=== PATIENT | female | born 1990 | race Caucasian/White ===

== ENCOUNTER 2016-12-25 17:16 | Emergency (ER) | payer BC ==
[2016-12-25] MEDS ORDERED: HYDROmorphone 1 MG/ML Syringe IVPUSH ONE ×2 (18:08→20:33)
[2016-12-25] MEDS ORDERED: Sodium Chloride 0.9% 10 ML Syringe FLUSH PRN (18:08)
[2016-12-25] MEDS ORDERED: Promethazine 25 MG/ML SDV IV ONE (18:08)
[2016-12-25] MEDS ORDERED: Lactated Ringers 1,000 ML IV ONE (18:08)
--- NOTE | 2016-12-25 18:09 | EDM.PDOC ---
ED HPI GI/ABDOMINAL - General Chief Complaint: Abdominal Pain Stated Complaint: Abdominal pain Time Seen by Provider: 12/25/16 17:50 Source of Information: Reports: Patient, RN notes reviewed History Limitations: Reports: No limitations - History of Present Illness INITIAL COMMENTS - FREE TEXT/NARRATIVE: 26 year old female presents to the ED today due to abdominal pain for the past two days. This is a chronic problem for her. Her pain is located to her mid abdomen and umbilicus. She has associated nausea, no vomiting. She has diarrhea stools most days. She was taking Levsin and Zofran but has ran out. She utilized phenergan suppositories which has helped her nausea. She has not seen her caul puller as she is not happy with her care. She is currently working on a referral to a rehabilitation center manager. She's had numerous abdominal pain work ups which have been normal. Her last CT scan was two months ago. Her symptoms today are consistent with her usual abdominal pain symptoms. No fever, chills, dysuria, frequency, chest pain, shortness of breath. Patient has had multiple diagnostic studies including egd, colonscopies, CT and MRIs. No etiology has been found for her abdominal pain. She was pain free for nearly 6 months after her hystorectomy. However, her symptoms restarted 2-3 months ago. She has not seen her OBGYN since symptoms returned. - Related Data Allergies/ADRs: Allergies Allergy/AdvReac Type Severity Reaction Status Date / Time Penicillins Allergy Hives Verified 11/15/16 16:29 Home Meds: Home Meds Ondansetron [Zofran ODT] 8 mg PO Q6H PRN 12/08/15 [History] Acetaminophen [Tylenol Extra Strength] 500 mg PO DAILY 11/15/16 [History] Acetaminophen/oxyCODONE [Percocet 325-5 MG] 1 tab PO Q6H PRN #10 tablet [Rx] Hyoscyamine Sulfate [Levsin] 0.125 mg PO Q6H PRN #20 tablet 12/25/16 [Rx] Ondansetron [Zofran ODT] 4 mg PO Q8H PRN #20 tab.dis 12/25/16 [Rx] Past Medical History - Past Health History Medical/Surgical History: Denies Medical/Surgical History Other HEENT History: sinus surgery Gastrointestinal History: Reports: Other (see below) Other Gastrointestinal History: chronic abdominal pain 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 OB/BYN History: Ovarian Cysts, Laparoscopy Neurological History: Reports: Migraines - Infectious Disease History Infectious Disease History: Reports: Chicken pox - Past Surgical History HEENT Surgical History: Reports: Myringotomy w tube(s), Tonsillectomy Other HEENT Surgeries/Procedures: Septoplasty GI Surgical History: Reports: Cholecystectomy, Colonoscopy Female Surgical History: Reports: Hysterectomy, Tubal ligation Social & Family History - Tobacco Use Smoking Status *Q: Never Smoker Second Hand Smoke Exposure: No - Caffeine Use Caffeine Use: Reports: Coffee, Tea - Alcohol Use Days Per Week of Alcohol Use: 0 - Recreational Drug Use Recreational Drug Use: No - Living Situation & Occupation Living situation: Reports: with family ED ROS GENERAL - Review of Systems Review Of Systems: See Below Constitutional: Reports: no symptoms. Denies: fever, chills, diaphoresis Respiratory: Reports: No Symptoms. Denies: Shortness of Breath Cardiovascular: Reports: No symptoms. Denies: Chest pain GI/Abdominal: Reports: Abdominal pain, Diarrhea, Nausea. Denies: Constipation, Vomiting : Reports: no symptoms. Denies: dysuria, flank pain, frequency ED EXAM, GI/ABD - Physical Exam Exam: See Below Exam Limited By: No limitations General Appearance: alert, WD/WN, anxious, moderate distress Respiratory/Chest: no respiratory distress, lungs clear, normal breath sounds, no accessory muscle use, chest non-tender Cardiovascular: normal peripheral pulses, regular rate, rhythm, no murmur GI/Abdominal: normal bowel sounds, soft, no organomegaly, no distention, tenderness (diffuse ), guarding. No: rebound, rigidity Back Exam: normal inspection, full range of motion. No: CVA tenderness (L), CVA tenderness (R) Neurological: alert, oriented, normal cognition Course - Vital Signs Last Recorded V/S: Last Vital Signs Temp 98.0 F 12/25/16 17:38 Pulse 125 H 12/25/16 17:38 Resp 20 12/25/16 17:38 BP 116/88 12/25/16 17:38 Pulse Ox 100 12/25/16 17:38 - Orders/Labs/Meds Orders: Active Orders 24 hr Category Date Time Status Peripheral IV Care [RC] . DIRECTED Care 12/25/16 18:08 Active Sodium Chloride 0.9% [Normal Saline] 50 ml Med 12/25/16 19:00 Active IV ASDIRECTED Sodium Chloride 0.9% [Saline Flush] Med 12/25/16 18:08 Active 10 ml FLUSH ASDIRECTED PRN Peripheral IV Insertion Adult [OM.PC] Stat Oth 12/25/16 18:08 Ordered Medication Orders Sodium Chloride (Normal Saline) 50 mls @ 100 mls/hr IV ASDIRECTED LUIS ANTONIO Last Admin: 12/25/16 19:30 Dose: 100 mls/hr Sodium Chloride (Saline Flush) 10 ml FLUSH ASDIRECTED PRN PRN Reason: Keep Vein Open Last Admin: 12/25/16 19:34 Dose: 10 ml Meds: Medications Generic Name Dose Route Start Last Admin Trade Name Freq PRN Reason Stop Dose Admin Sodium Chloride 50 mls @ 100 mls/hr 12/25/16 19:00 12/25/16 19:30 Normal Saline IV 100 mls/hr ASDIRECTED LUIS ANTONIO Administration Sodium Chloride 10 ml 12/25/16 18:08 12/25/16 19:34 Saline Flush FLUSH 10 ml ASDIRECTED PRN Administration Keep Vein Open Discontinued Medications Generic Name Dose Route Start Last Admin Trade Name Freq PRN Reason Stop Dose Admin Fentanyl 50 mcg 12/25/16 21:16 12/25/16 21:24 Sublimaze IVPUSH 12/25/16 21:17 50 mcg ONETIME ONE Administration Hydromorphone HCl 1 mg 12/25/16 18:08 12/25/16 19:32 Dilaudid IVPUSH 12/25/16 18:09 1 mg ONETIME ONE Administration Hydromorphone HCl 1 mg 12/25/16 20:33 12/25/16 20:39 Dilaudid IVPUSH 12/25/16 20:34 1 mg ONETIME ONE Administration Lactated Ringer's 1,000 mls @ 999 mls/hr 12/25/16 18:08 12/25/16 19:28 Ringers, Lactated IV 12/25/16 19:08 999 mls/hr .BOLUS ONE Administration Ketorolac Tromethamine 30 mg 12/25/16 20:33 12/25/16 20:40 Toradol IVPUSH 12/25/16 20:34 30 mg ONETIME ONE Administration Promethazine HCl 25 mg 12/25/16 18:08 12/25/16 19:30 Phenergan IV 12/25/16 18:09 25 mg ONETIME ONE Administration - Re-Assessments/Exams Free Text/Narrative Re-Assessment/Exam: The patient's symptoms are consistent with her chronic abdominal pain. She's had multiple workups in the past with no identifiable etiology. Shared decision making process utilized. Labs were offered but the patient and I agree that labs are not necessary. Our goal today will be to treat her pain. After 2 mg of Dilaudid, 30mg of Toradol, and Phenergan, the patient's pain improved to 6/10. She is requesting additional pain medication. Will give Fentanyl 50 mcg IV x1. Patient feels she is ready to be discharged after Fentanyl. Departure - Departure Time of Disposition: 21:16 Disposition: Home, Self-Care 01 Condition: good Clinical Impression: Chronic abdominal pain Prescriptions: Hyoscyamine Sulfate [Levsin] 0.125 mg PO Q6H PRN #20 tablet PRN Reason: Abdominal Pain Ondansetron [Zofran ODT] 4 mg PO Q8H PRN #20 tab.dis PRN Reason: Nausea Instructions: Abdominal Pain, Adult, [id number] Referrals: PCP,None [Primary Care Provider] - Forms: ED Department Discharge Additional Instructions: Follow-up with your primary care provider as soon as possible Levsin 0.125mg every 6 hours as needed Zofran 4mg every 8 hours as needed for nausea Tylenol or Motrin as needed for pain Return to ER with worsening of symptoms No driving due to sedating medications given in the ED. - My Orders Last 24 Hours: My Active Orders 12/25/16 18:08 Peripheral IV Care [RC] . DIRECTED Sodium Chloride 0.9% [Saline Flush] 10 ml FLUSH ASDIRECTED PRN Peripheral IV Insertion Adult [OM.PC] Stat 12/25/16 19:00 Sodium Chloride 0.9% [Normal Saline] 50 ml IV ASDIRECTED - Assessment/Plan Last 24 Hours: My Active Orders 12/25/16 18:08 Peripheral IV Care [RC] . DIRECTED Sodium Chloride 0.9% [Saline Flush] 10 ml FLUSH ASDIRECTED PRN Peripheral IV Insertion Adult [OM.PC] Stat 12/25/16 19:00 Sodium Chloride 0.9% [Normal Saline] 50 ml IV ASDIRECTED
[2016-12-25] MEDS ORDERED: Sodium Chloride 0.9% 50 ML IV SCH (19:00)
[2016-12-25] MEDS ORDERED: Ketorolac 30 MG/ML SDV IVPUSH ONE (20:33)
[2016-12-25] MEDS ORDERED: fentaNYL 100 MCG/2 ML SDV IVPUSH ONE (21:16)
[2016-12-25 21:50] VITALS: BP 101/66
== END 2016-12-25 21:50 | disposition home or self-care (01) ==
LOC: JD.ED 17:16
DX: R10.84 Generalized abdominal pain (principal); G89.29 Other chronic pain; G43.909 Migraine, unspecified, not intractable, without status migrainosus; Z90.49 Acquired absence of other specified parts of digestive tract; Z90.710 Acquired absence of both cervix and uterus; Z98.890 Other specified postprocedural states; Z79.899 Other long term (current) drug therapy; Z88.0 Allergy status to penicillin
CPT/HCPCS: 96361; 96365; 96375; 96376; 99284; J1170; J1885; J2550; J3010; J7050; J7120

== ENCOUNTER 2017-03-25 12:40 | Emergency (ER) | payer SELFPAY ==
[2017-03-25] MEDS ORDERED: Sodium Chloride 0.9% 10 ML Syringe FLUSH PRN (13:34)
[2017-03-25] MEDS ORDERED: Promethazine 25 MG in Sodium Chloride 0.9% 50 ML IV ONE (13:34)
[2017-03-25] MEDS ORDERED: Lactated Ringers 1,000 ML IV ONE (13:34)
[2017-03-25] MEDS ORDERED: HYDROmorphone 1 MG/ML Syringe IVPUSH ONE ×2 (13:35→15:09)
--- NOTE | 2017-03-25 14:25 | EDM.PDOC ---
ED HPI GENERAL MEDICAL PROBLEM - General Chief Complaint: Abdominal Pain Stated Complaint: ABDOMINAL PAIN Time Seen by Provider: 03/25/17 13:55 Source of Information: Reports: Patient, Old Records (recent ER visit) History Limitations: Reports: No Limitations - History of Present Illness INITIAL COMMENTS - FREE TEXT/NARRATIVE: 26 year old female presents for evaluation and treatment of abdominal pain. Patient has chronic abdominal pain of unknown etiology. She has been seen by GI in [place] for her pain but no cause has been found. She is currently in between insurance providers, however, when her insurance is restarted she takes about going to [place] for a second opinion. She reports she has started this process. Patient has had numerous tests, images and ER visits but no etiology has been identified. She is not in any pain contract. Patient reports t his current episode of abdominal pain started about 2 days ago. The abdominal pain is similar to previous episodes. Reports associated nausea. No vomiting, diarrhea, fevers or constipation. Patient reports the pain is a sharp stabbing pain throughout her abdomen but worse in the lower quadrants. Reports the pain is a 10 out of 10. She has tried tyleol, zofran and tramadol for her symptoms but has not found any relief. Past surgical history includes a hysterectomy and tibial ligation. Abdominal Pain Score (Numeric/FACES): 10 - Related Data Allergies Allergy/AdvReac Type Severity Reaction Status Date / Time Penicillins Allergy Hives Verified 03/25/17 12:47 Home Meds: Home Meds Acetaminophen [Tylenol Extra Strength] 500 mg PO DAILY 11/15/16 [History] Hyoscyamine Sulfate [Levsin] 0.125 mg PO Q6H PRN #20 tablet 12/25/16 [Rx] Ondansetron [Zofran ODT] 4 mg PO Q8H PRN #20 tab.dis 12/25/16 [Rx] Ondansetron HCl [Zofran] 8 mg PO BID PRN 03/25/17 [History] Past Medical History - Past Health History Medical/Surgical History: Denies Medical/Surgical History Other HEENT History: sinus surgery Gastrointestinal History: Reports: Other (See Below) Other Gastrointestinal History: chronic abdominal pains, approx q 2 weeks, lasts for one week and then pain subsides. 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 Social & Family History - Tobacco Use Smoking Status *Q: Never Smoker Second Hand Smoke Exposure: No - Caffeine Use Caffeine Use: Reports: Coffee, Soda Caffeine Use Comment: 1-2 times per week, occ coffee - Alcohol Use Days Per Week of Alcohol Use: 0 - Recreational Drug Use Recreational Drug Use: No - Living Situation & Occupation Living situation: Reports: with Family ED ROS GENERAL - Review of Systems Review Of Systems: See Below Constitutional: Denies: Fever GI/Abdominal: Reports: Abdominal Pain, Nausea. Denies: Constipation, Diarrhea, Vomiting ED EXAM, GI/ABD - Physical Exam Exam: See Below Exam Limited By: No Limitations General Appearance: Alert, WD/WN, Mild Distress Respiratory/Chest: No Respiratory Distress, Lungs Clear, Normal Breath Sounds Cardiovascular: Normal Peripheral Pulses, Regular Rate, Rhythm, No Murmur GI/Abdominal: Normal Bowel Sounds, Soft, Tenderness (lower abdomen). No: Distention, Rebound, Rigidity Neurological: Alert, Oriented Psychiatric: Normal Affect, Normal Mood Skin Exam: Warm, Dry, Normal Color Course - Vital Signs Last Recorded V/S: Last Vital Signs Temp 36.4 C 03/25/17 12:45 Pulse 98 03/25/17 17:50 Resp 18 03/25/17 12:45 BP 94/60 03/25/17 17:50 Pulse Ox 99 03/25/17 17:50 - Orders/Labs/Meds Meds: Medications Discontinued Medications Generic Name Dose Route Start Last Admin Trade Name Freq PRN Reason Stop Dose Admin Hydromorphone HCl 1 mg 03/25/17 13:35 03/25/17 13:57 Dilaudid IVPUSH 03/25/17 13:36 1 mg ONETIME ONE Administration Hydromorphone HCl 1 mg 03/25/17 15:09 03/25/17 15:13 Dilaudid IVPUSH 03/25/17 15:10 1 mg ONETIME ONE Administration Hydromorphone HCl 0.5 mg 03/25/17 17:32 03/25/17 17:37 Dilaudid IVPUSH 03/25/17 17:33 0.5 mg ONETIME ONE Administration Lactated Ringer's 1,000 mls @ 999 mls/hr 03/25/17 13:34 03/25/17 14:00 Ringers, Lactated IV 03/25/17 14:34 999 mls/hr .BOLUS ONE Administration Promethazine HCl 25 mg/ Sodium 51 mls @ 100 mls/hr 03/25/17 13:34 03/25/17 13 :57 Chloride IV 03/25/17 14:04 100 mls/hr ONETIME ONE Administration Ketorolac Tromethamine 30 mg 03/25/17 15:09 03/25/17 15:15 Toradol IVPUSH 03/25/17 15:10 30 mg ONETIME ONE Administration Sodium Chloride 10 ml 03/25/17 13:34 03/25/17 14:00 Saline Flush FLUSH 10 ml ASDIRECTED PRN Administration Keep Vein Open - Re-Assessments/Exams Free Text/Narrative Re-Assessment/Exam: 03/25/17 17:52 I offered the patient any additional testing. She reports the abdominal pain today is similar to previous episodes and she is mostly here for pain control. I spoke with the patient's PCP, Shobha Smith. She switched PCPs recently and her new PCP has not yet seen her for her abdominal pain. Patient is currently in between insurance carries but the plan will be to have the patient follow-up with her PCP as soon as she is able to and they can discuss a second opinion from GI or a referral to [place] as needed. Patient has received 1.5mg IV dilaudid, 30mg IV toradol, 1 L LR and 25 mg phenergran IV. Pain is currently at a 5/10. She feels comfortably going home at this level Discharge instructions as documented. Departure - Departure Time of Disposition: 17:52 Disposition: Home, Self-Care 01 Condition: Fair Clinical Impression: Abdominal pain of unknown etiology - Discharge Information Instructions: Abdominal Pain, Adult, [id number] Referrals: Nayely Smith SHIPPING PACKER [Primary Care Provider] - Forms: ED Department Discharge Additional Instructions: Follow-up with your primary care provider within the next 1-2 weeks. I recommend he discuss a referral to [facility]. Continue with your current plan of care. Please return to the ER if your symptoms change or worsen.
[2017-03-25] MEDS ORDERED: Ketorolac 30 MG/ML SDV IVPUSH ONE (15:09)
[2017-03-25] MEDS ORDERED: HYDROmorphone 0.5 MG/0.5 ML Syringe IVPUSH ONE (17:32)
[2017-03-25 18:10] VITALS: BP 94/60
== END 2017-03-25 18:10 | disposition home or self-care (01) ==
LOC: SUPCPDRO 12:40 → JD.ED 12:40
DX: R10.30 Lower abdominal pain, unspecified (principal); G43.909 Migraine, unspecified, not intractable, without status migrainosus; Z98.890 Other specified postprocedural states; Z90.49 Acquired absence of other specified parts of digestive tract; Z90.710 Acquired absence of both cervix and uterus; Z96.22 Myringotomy tube(s) status; Z79.899 Other long term (current) drug therapy; Z88.0 Allergy status to penicillin
CPT/HCPCS: 96361; 96365; 96375; 96376; 99284; J1170; J1885; J2550; J7050; J7120

== ENCOUNTER 2017-04-15 20:05 | Emergency (ER) | payer SELFPAY ==
[2017-04-15 20:16] VITALS: BP 108/64
[2017-04-15] MEDS ORDERED: Ondansetron 4 MG/2 ML SDV IVPUSH ONE (20:36)
[2017-04-15] MEDS ORDERED: Sodium Chloride 0.9% 1,000 ML IV SCH (20:45)
--- NOTE | 2017-04-15 21:32 | EDM.PDOC ---
ED HPI GENERAL MEDICAL PROBLEM - General Chief Complaint: Abdominal Pain Stated Complaint: SEVERE ABDOMINAL PAIN Time Seen by Provider: 04/15/17 20:21 Source of Information: Reports: Patient, Family (Mother), Old Records, RN Notes Reviewed History Limitations: Reports: No Limitations - History of Present Illness INITIAL COMMENTS - FREE TEXT/NARRATIVE: The patient states that she has been experiencing lower abdominal pain, sharp in character, for the past 2 days, and that it has been getting progressively worse. She states that she fainted last night around 19:00 due to the pain. She feels somewhat better if she is in a position with a heating pad on her abdomen, worse with movement. She states that she has both urinated and had a bowel movement, without any change in her symptoms. She reports 3 episodes of emesis today, but no recent constipation, diarrhea, or urinary symptoms. She states that she has had similar symptoms repeatedly over the past 3 years. She has had extensive workups, including EGDs, colonoscopies, MRI's and approximately 10 CT scans, all of which have been negative as to cause. She states that she has undergone a cholecystectomy and hysterectomy, without relief of her symptoms. Review of prior medical records finds that this is her (approximately) 34th ED visit for this same complaint. She receives Dilaudid on the vast majority of her visits. She was seen by me in this ED on 09/04/2015 and explicitly asked for narcotics at that time. Review of the [place] PMPi finds 17 prescriptions for opioids by 12 different prescribers, filled at 4 different pharmacies since . The patient's PCP is Shobha Smith, who has prescribed the patient Zofran. Her Conservation Technician is Dr. Fagan from [facility]. 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: Musculoskeletal History: Reports: Fracture - Infectious Disease History Infectious Disease History: Reports: Chicken Pox - Past Surgical History HEENT Surgical History: Reports: Naso-Sinus Surgery, Oral Surgery ([place] teeth extraction), Tonsillectomy GI Surgical History: Reports: Cholecystectomy, Colonoscopy, EGD Female Surgical History: Reports: Hysterectomy, Tubal Ligation Social & Family History - Tobacco Use Smoking Status *Q: Never Smoker Second Hand Smoke Exposure: No - Caffeine Use Caffeine Use: Reports: None Caffeine Use Comment: 1-2 times per week, occ coffee - Alcohol Use Alcohol Use History: Yes Days Per Week of Alcohol Use: 0 Alcohol Use Frequency: Socially - Recreational Drug Use Recreational Drug Use: No - Living Situation & Occupation Living situation: Reports: (), with Family 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 Denies: Constipation, Diarrhea : Reports: No Symptoms. Denies: Dysuria, Frequency, Urgency Musculoskeletal: Reports: No Symptoms Skin: Reports: No Symptoms Neurological: Reports: No Symptoms Hematologic/Lymphatic: Reports: No Symptoms Immunologic: Reports: No Symptoms ED EXAM, GI/ABD - Physical Exam Exam: See Below Exam Limited By: No Limitations General Appearance: Alert, WD/WN, Mild Distress Eyes: Bilateral: Normal Appearance, EOMI Ears: Normal External Exam, Hearing Grossly Normal Nose: Normal Inspection, No Blood Throat/Mouth: Normal Inspection, Normal Lips, Normal Voice, No Airway Compromise Head: Atraumatic, Normocephalic Neck: Normal Inspection, Full Range of Motion Respiratory/Chest: No Respiratory Distress, Lungs Clear, Normal Breath Sounds, No Accessory Muscle Use Cardiovascular: Normal Peripheral Pulses, Regular Rate, Rhythm, No Gallop, No JVD, No Murmur, No Rub GI/Abdominal Exam: Normal Bowel Sounds, Soft, No Organomegaly, No Distention, No Abnormal Bruit, No Mass, Other (Generalized, nonfocal tenderness) (Female) Exam: Deferred Rectal (Female) Exam: Deferred Back Exam: Normal Inspection, Full Range of Motion, CVA Tenderness (R). No: CVA Tenderness (L) Extremities: Normal Inspection, Normal Range of Motion, No Pedal Edema, Normal Capillary Refill Neurological: Alert, Oriented, Normal Cognition, No Motor/Sensory Deficits Psychiatric: Depressed Mood, Flat Affect Skin Exam: Warm, Dry, Intact, Normal Color, No Rash Lymphatic: No Adenopathy Course - Vital Signs Last Recorded V/S: Last Vital Signs Temp 36.6 C 04/15/17 20:12 Pulse 94 04/15/17 20:12 Resp 20 04/15/17 20:12 BP 108/64 04/15/17 20:12 Pulse Ox 100 04/15/17 20:12 - Orders/Labs/Meds Orders: Active Orders 24 hr Category Date Time Status Abdomen 1V Upright [CR] Stat Exams 04/15/17 20:41 Taken Labs: Laboratory Tests 04/15/17 04/15/17 04/15/17 Range/Units 20:40 20:40 20:57 WBC 10.33 H (3.98-10.04) K/mm3 RBC 4.81 (3.98-5.22) M/mm3 Hgb 14.2 (11.2-15.7) gm/L Hct 41.2 (34.1-44.9) % MCV 85.7 (79.4-94.8) fl MCH 29.5 (25.6-32.2) pg MCHC 34.5 (32.2-35.5) g/dl RDW Std Deviation 40.9 (36.4-46.3) fL Plt Count 243 (182-369) K/mm3 MPV 10.2 (9.4-12.3) fl Neutrophils % (Manual) 50 (40-60) % Band Neutrophils % 0 (0-10) % Lymphocytes % (Manual) 40 (20-40) % Atypical Lymphs % 0 % Monocytes % (Manual) 7 (2-10) % Eosinophils % (Manual) 3 (0.7-5.8) % Basophils % (Manual) 0 L (0.1-1.2) Platelet Estimate Adequate RBC Morph Comment Normal Sodium 144 (136-145) mEq/L Potassium 3.8 (3.5-5.1) mEq/L Chloride 108 H (98-107) mEq/L Carbon Dioxide 28 (21-32) mEq/L Anion Gap 11.8 (5-15) BUN 14 (7-18) mg/dL Creatinine 1.0 (0.55-1.02) mg/dL Est Cr Clr Drug Dosing 64.89 mL/min Estimated GFR (MDRD) > 60 (>60) mL/min BUN/Creatinine Ratio 14.0 (14-18) Glucose 91 (74-106) mg/dL Calcium 9.0 (8.5-10.1) mg/dL Total Bilirubin 0.2 (0.2-1.0) mg/dL AST 15 (15-37) U/L ALT 21 (14-59) U/L Alkaline Phosphatase 73 (46-116) U/L Total Protein 7.0 (6.4-8.2) g/dl Albumin 4.0 (3.4-5.0) g/dl Globulin 3.0 gm/dL Albumin/Globulin Ratio 1.3 (1-2) Lipase 204 (73-393) U/L Urine Color Yellow (Yellow) Urine Appearance Clear (Clear) Urine pH 8.0 (5.0-8.0) Ur Specific Stout 1.020 (1.005-1.030) Urine Protein Negative (Negative) Urine Glucose (UA) Negative (Negative) Urine Ketones Negative (Negative) Urine Occult Blood Negative (Negative) Urine Nitrite Negative (Negative) Urine Bilirubin Negative (Negative) Urine Urobilinogen 0.2 (0.2-1.0) Ur Leukocyte Esterase Negative (Negative) Urine RBC 0-5 (0-5) /hpf Urine WBC 0-5 (0-5) /hpf Ur Epithelial Cells 0-5 (0-5) /hpf Urine Bacteria Few (FEW) /hpf Urine Mucus Few (FEW) /hpf Meds: Medications Discontinued Medications Generic Name Dose Route Start Last Admin Trade Name Freq PRN Reason Stop Dose Admin Sodium Chloride 1,000 mls @ 150 mls/hr 04/15/17 20:45 04/15/17 20:50 Normal Saline IV 150 mls/hr ASDIRECTED LUIS ANTONIO Administration Ondansetron HCl 4 mg 04/15/17 20:36 04/15/17 20:50 Zofran IVPUSH 04/15/17 20:37 4 mg ONETIME ONE Administration - Re-Assessments/Exams Free Text/Narrative Re-Assessment/Exam: 04/15/17 21:31 Upright abdominal radiograph appears to demonstrate stool in the right colon, otherwise a nonspecific bowel gas pattern. No free air. Formal read per the Radiologist pending. 04/15/17 22:28 Test results discussed with the patient and her mother, with nurse Dina present. Today's workup is unremarkable, and does not indicate that anything serious is occurring. I explained that this is the patient's 34th visit to this ED for the same complaint, which is concerning. ED's are not in a position to manage chronic issues. At present, she needs to formulate a plan for treating exacerbations with either Ms. Smith or her Conservation Technician, Dr. Fagan. As has been previously reported, I suspect that the patient's symptoms are related to depression, and she has been referred to psychiatry in the past, but I do not see that she is on any antidepressant medication. Departure - Departure Time of Disposition: 22:30 Disposition: Home, Self-Care 01 Condition: Good Clinical Impression: Chronic abdominal pain - Discharge Information Instructions: Abdominal Pain, Adult, [id number] Referrals: Nayely Smith NP [Ordering Only Provider] - Sb Fagan MD [Ordering Only Provider] - Forms: ED Department Discharge Additional Instructions: You were seen in the emergency room for recurrent abdominal pain, nausea and vomiting. Workup in the ER included blood work, a urinalysis, and an upright abdominal x- ray. Your entire workup was unremarkable, indicating no serious illness. The cause of your chronic abdominal pain is not known. Please follow-up with your PCP, Shobha Smith, and your Conservation Technician, Dr. Fagan. If any other problems, please do not hesitate to return to the ER. - My Orders Last 24 Hours: My Active Orders 04/15/17 20:41 Abdomen 1V Upright [CR] Stat - Assessment/Plan Last 24 Hours: My Active Orders 04/15/17 20:41 Abdomen 1V Upright [CR] Stat
--- NOTE | 2017-04-16 07:38 | CR ---
Abdomen: Upright view of the abdomen was obtained. Comparison: Previous upright abdominal x-ray of 04/25/16 is available. Bowel gas pattern is normal. No free air is seen. Bony structures appear within normal limits for the patient's age. Incidental phlebolith is noted within the pelvis. Impression: 1. Nothing acute is appreciated on upright abdominal x-ray. Diagnostic code #1
== END 2017-04-15 22:42 | disposition home or self-care (01) ==
LOC: JD.ED 20:05
DX: R10.30 Lower abdominal pain, unspecified (principal); G89.29 Other chronic pain; Z88.0 Allergy status to penicillin; Z79.899 Other long term (current) drug therapy; Z90.49 Acquired absence of other specified parts of digestive tract; Z90.710 Acquired absence of both cervix and uterus; Z98.51 Tubal ligation status
CPT/HCPCS: 36415; 74000; 80053; 81001; 83690; 85025; 96361; 96374; 99284; J2405; J7040; P9612

== ENCOUNTER 2017-06-12 23:03 | Emergency (ER) | payer SELFPAY ==
--- NOTE | 2017-06-12 23:11 | EDM.PDOC ---
ED HPI GENERAL MEDICAL PROBLEM - General Chief Complaint: Flank Pain Stated Complaint: STOMACH PAIN/BACK. BLACKED OUT Time Seen by Provider: 06/12/17 23:10 - History of Present Illness INITIAL COMMENTS - FREE TEXT/NARRATIVE: 26-year-old female returns emergency room with abdominal pain. Patient describes right flank discomfort and at times the pain has been so severe it drops her to her knees. She is awake during these episodes. They're not associated with palpitations chest discomfort or breathing difficulties. Patient has not had any fevers however, with the cooler weather has been chilled at times and she's not had associated nausea or vomiting. She does state she has urinary frequency but just can't empty and has to go again the patient is scheduled for a oophorectomy for polycystic ovarian disease. She's already had a hysterectomy cholecystectomy. With review the charts patient is been in multiple times for similar complaints she's had multiple extensive workups all of which been unrevealing she's had numerous CAT scans that have also been unrevealing. The patient and her mother are asking for pain medication at this time. I explained to him that we try not to do chronic pain management here in the emergency room this is a chronic pain problem. 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: Other OB/BYN History: Ovarian Cysts, Laparoscopy Musculoskeletal History: Reports: Fracture Neurological History: Reports: Migraines - Infectious Disease History Infectious Disease History: Reports: Chicken Pox - Past Surgical History HEENT Surgical History: Reports: Naso-Sinus Surgery, Oral Surgery ([place] teeth extraction), Tonsillectomy GI Surgical History: Reports: Cholecystectomy, Colonoscopy, EGD Female Surgical History: Reports: Hysterectomy, Tubal Ligation Social & Family History - Tobacco Use Smoking Status *Q: Never Smoker Second Hand Smoke Exposure: No - Caffeine Use Caffeine Use: Reports: None Caffeine Use Comment: 1-2 times per week, occ coffee - Alcohol Use Days Per Week of Alcohol Use: 0 - Recreational Drug Use Recreational Drug Use: No - Living Situation & Occupation Living situation: Reports: (), with Family 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 Denies: Constipation, Diarrhea, Vomiting : Reports: Dysuria, Frequency. Denies: Hematuria Neurological: Reports: No Symptoms ED EXAM, GENERAL - Physical Exam Exam: See Below Exam Limited By: No Limitations General Appearance: Alert, No Apparent Distress Head: Atraumatic, Normocephalic Neck: Normal Inspection, Supple, Non-Tender, Full Range of Motion Respiratory/Chest: No Respiratory Distress, Lungs Clear, Normal Breath Sounds Cardiovascular: Regular Rate, Rhythm, No Edema, No Murmur GI/Abdominal: Normal Bowel Sounds, Soft, Other (She has vague right lower quadrant discomfort). No: Distended, Guarding, Rigid, Rebound Back Exam: Normal Inspection, CVA Tenderness (R). No: CVA Tenderness (L), Muscle Spasm, Vertebral Tenderness Extremities: Normal Inspection, No Pedal Edema Course - Vital Signs Last Recorded V/S: Last Vital Signs Temp 35.9 C 06/12/17 23:09 Pulse 153 H 06/12/17 23:09 Resp 18 06/12/17 23:09 BP 117/71 06/12/17 23:09 Pulse Ox 100 06/12/17 23:09 - Orders/Labs/Meds Labs: Laboratory Tests 06/12/17 06/12/17 06/12/17 Range/Units 23:27 23:48 23:48 WBC 15.59 H (3.98-10.04) K/mm3 RBC 4.93 (3.98-5.22) M/mm3 Hgb 14.5 (11.2-15.7) gm/L Hct 42.4 (34.1-44.9) % MCV 86.0 (79.4-94.8) fl MCH 29.4 (25.6-32.2) pg MCHC 34.2 (32.2-35.5) g/dl RDW Std Deviation 41.0 (36.4-46.3) fL Plt Count 275 (182-369) K/mm3 MPV 9.9 (9.4-12.3) fl Neutrophils % (Manual) 62 H (40-60) % Band Neutrophils % 0 (0-10) % Lymphocytes % (Manual) 23 (20-40) % Atypical Lymphs % 7 % Monocytes % (Manual) 6 (2-10) % Eosinophils % (Manual) 2 (0.7-5.8) % Basophils % (Manual) 0 L (0.1-1.2) Platelet Estimate Adequate Plt Morphology Comment Normal RBC Morph Comment Normal Sodium 139 (136-145) mEq/L Potassium 3.9 (3.5-5.1) mEq/L Chloride 105 (98-107) mEq/L Carbon Dioxide 25 (21-32) mEq/L Anion Gap 12.9 (5-15) BUN 13 (7-18) mg/dL Creatinine 0.8 (0.55-1.02) mg/dL Est Cr Clr Drug Dosing TNP Estimated GFR (MDRD) > 60 (>60) mL/min BUN/Creatinine Ratio 16.3 (14-18) Glucose 109 H (74-106) mg/dL Calcium 9.5 (8.5-10.1) mg/dL Total Bilirubin 0.2 (0.2-1.0) mg/dL AST 15 (15-37) U/L ALT 19 (14-59) U/L Alkaline Phosphatase 80 (46-116) U/L Total Protein 7.1 (6.4-8.2) g/dl Albumin 4.0 (3.4-5.0) g/dl Globulin 3.1 gm/dL Albumin/Globulin Ratio 1.3 (1-2) Lipase 191 (73-393) U/L Urine Color Yellow (Yellow) Urine Appearance Clear (Clear) Urine pH 7.0 (5.0-8.0) Ur Specific [place] 1.025 (1.005-1.030) Urine Protein Negative (Negative) Urine Glucose (UA) Negative (Negative) Urine Ketones Negative (Negative) Urine Occult Blood 1+ H (Negative) Urine Nitrite Negative (Negative) Urine Bilirubin Negative (Negative) Urine Urobilinogen 0.2 (0.2-1.0) Ur Leukocyte Esterase Negative (Negative) Urine RBC 0-5 (0-5) /hpf Urine WBC 0-5 (0-5) /hpf Ur Epithelial Cells 0-5 (0-5) /hpf Urine Bacteria Few (FEW) /hpf Urine Mucus Moderate H (FEW) /hpf - Re-Assessments/Exams Free Text/Narrative Re-Assessment/Exam: 06/13/17 00:51 Labs reviewed white count slightly elevated no significant left shift no bandemia. Urinalysis is not suggestive of infectious process trace blood noted. Discussed the findings of this and further evaluation workups including CAT scan kidney stone is a possibility but I think not very likely given her exam and presentation she still has her appendix but if she has no appendicitis we are very early into this. The option for a CAT scan was given however I think is quite reasonable to wait 12-24 hours reevaluated pains better have return sooner if getting worse the patient concurs with this and agrees to this plan. 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 Departure - Departure Time of Disposition: 00:53 Disposition: Home, Self-Care 01 Clinical Impression: Abdominal pain of unknown etiology - Discharge Information Referrals: Ginette Barclay PA-C [Primary Care Provider] - Forms: ED Department Discharge Additional Instructions: Return to the emergency room with any questions problems worsening symptoms. Return in 12-24 hours if not better sooner if getting worse. Follow-up with gynecology as scheduled. Follow-up with your local provider this next week.
[2017-06-12 23:16] VITALS: BP 117/71
== END 2017-06-13 01:05 | disposition home or self-care (01) ==
LOC: JD.ED 23:03
DX: R10.31 Right lower quadrant pain (principal); Z88.0 Allergy status to penicillin; Z90.49 Acquired absence of other specified parts of digestive tract; Z90.710 Acquired absence of both cervix and uterus
CPT/HCPCS: 36415; 80053; 81001; 83690; 85025; 99283; 99284

== ENCOUNTER 2017-08-11 07:32 | Day surgery (SDC) | payer SELFPAY ==
[~2017-08-11 07:32] MED LIST: Lidocaine 1%/Sod Bicarbonate in NS 8.4% 1 ML Syringe IV PRN; Sodium Chloride 0.9% 10 ML Syringe FLUSH PRN
[2017-08-11] MEDS ORDERED: Bupivacaine 0.5% 30 ML SDV ONE (07:35)
[2017-08-11] MEDS: Lactated Ringers 1,000 ML IV SCH ×2 (07:50→11:12)
[2017-08-11] MEDS ORDERED: Scopolamine 1.5 MG Transdermal Patch TRDERM PRN (08:50)
--- NOTE | 2017-08-11 08:57 | PCM.PREANE ---
Preanesthetic Assessment - Anesthesia/Transfusion/Family Hx Anesthesia History: Prior Anesthesia Reaction (nausea) Family History of Anesthesia Reaction: No Transfusion History: No Prior Transfusion(s) - Review of Systems General: No Symptoms Pulmonary: No Symptoms Cardiovascular: No Symptoms Gastrointestinal: Abdominal Pain Neurological: No Symptoms Other: Reports: Anxiety - Physical Assessment NPO Status Date: 08/10/17 NPO Status Time: 21:00 Pulse: 108 O2 Sat by Pulse Oximetry: 98 Respiratory Rate: 16 Blood Pressure: 103/69 Temperature: 36.7 C Vital Signs: Last Vital Signs Temp 36.7 C 08/11/17 07:40 Pulse 108 H 08/11/17 07:40 Resp 16 08/11/17 07:40 BP 103/69 08/11/17 07:40 Pulse Ox 98 08/11/17 07:40 Height: 1.55 m Weight: 59.874 kg ASA Class: 2 Mental Status: Alert & Oriented x3 Airway Class: Mallampati = 1 Dentition: Reports: [place](s) Thyro-Mental Finger Breadths: 3 Mouth Opening Finger Breadths: 3 ROM/Head Extension: Full Lungs: Clear to Auscultation, Normal Respiratory Effort Cardiovascular: Regular Rate, Regular Rhythm, No Murmurs - Lab Values: Laboratory Last Values WBC 10.65 K/mm3 (3.98-10.04) H 08/03/17 13:38 RBC 5.28 M/mm3 (3.98-5.22) H 08/03/17 13:38 Hgb 15.4 gm/L (11.2-15.7) 08/03/17 13:38 Hct 45.2 % (34.1-44.9) H 08/03/17 13:38 MCV 85.6 fl (79.4-94.8) 08/03/17 13:38 MCH 29.2 pg (25.6-32.2) 08/03/17 13:38 MCHC 34.1 g/dl (32.2-35.5) 08/03/17 13:38 RDW Std Deviation 40.0 fL (36.4-46.3) 08/03/17 13:38 Plt Count 276 K/mm3 (182-369) 08/03/17 13:38 MPV 9.7 fl (9.4-12.3) 08/03/17 13:38 Neut % (Auto) 65.7 % (34.0-71.1) 08/03/17 13:38 Lymph % (Auto) 26.9 % (19.3-51.7) 08/03/17 13:38 [place] % (Auto) 6.1 % (4.7-12.5) 08/03/17 13:38 Eos % (Auto) 0.8 (0.7-5.8) 08/03/17 13:38 Baso % (Auto) 0.3 % (0.1-1.2) 08/03/17 13:38 Neut # (Auto) 6.99 K/mm3 (1.56-6.13) H 08/03/17 13:38 Lymph # (Auto) 2.87 K/mm3 (1.18-3.74) 08/03/17 13:38 [place] # (Auto) 0.65 K/mm3 (0.24-0.36) H 08/03/17 13:38 Eos # (Auto) 0.09 K/mm3 (0.04-0.36) 08/03/17 13:38 Baso # (Auto) 0.03 K/mm3 (0.01-0.08) 08/03/17 13:38 Creatinine 0.9 mg/dL (0.55-1.02) 08/03/17 13:38 Est Cr Clr Drug Dosing TNP 08/03/17 13:38 Estimated GFR (MDRD) > 60 mL/min (>60) 08/03/17 13:38 Urine Color Yellow (Yellow) 08/03/17 13:38 Urine Appearance Clear (Clear) 08/03/17 13:38 Urine pH 6.0 (5.0-8.0) 08/03/17 13:38 Ur Specific [place] 1.020 (1.005-1.030) 08/03/17 13:38 Urine Protein Negative (Negative) 08/03/17 13:38 Urine Glucose (UA) Negative (Negative) 08/03/17 13:38 Urine Ketones Negative (Negative) 08/03/17 13:38 Urine Occult Blood 2+ (Negative) H 08/03/17 13:38 Urine Nitrite Negative (Negative) 08/03/17 13:38 Urine Bilirubin Negative (Negative) 11/06/17 13:38 Urine Urobilinogen 0.2 (0.2-1.0) 08/03/17 13:38 Ur Leukocyte Esterase Negative (Negative) 08/03/17 13:38 Blood Type B POSITIVE 08/03/17 13:38 Gel Antibody Screen Negative 08/03/17 13:38 - Allergies Allergies/Adverse Reactions: Allergies Allergy/AdvReac Type Severity Reaction Status Date / Time Penicillins Allergy Hives Verified 08/10/17 14:07 - Anesthesia Plan Pre-Op Medication Ordered: None - Acknowledgements Anesthesia Type Planned: General Anesthesia Pt an Appropriate Candidate for the Planned Anesthesia: Yes Alternatives and Risks of Anesthesia Discussed w Pt/Guardian: Yes Pt/Guardian Understands and Agrees with Anesthesia Plan: Yes PreAnesthesia Questionnaire - Past Health History Medical/Surgical History: Denies Medical/Surgical History HEENT History: Reports: Impaired Vision Other HEENT History: sinus surgery Cardiovascular History: Reports: None Respiratory History: Reports: None Gastrointestinal History: Reports: Other (See Below) Other Gastrointestinal History: chronic abdominal pains, Genitourinary History: Reports: UTI, Recurrent [employer] History: Reports: Polycystic Ovaries, Other OB/BYN History: Ovarian Cysts, Laparoscopy Musculoskeletal History: Reports: None, Fracture Neurological History: Reports: Migraines Psychiatric History: Reports: None Endocrine/Metabolic History: Reports: Other (See Below) Other Endocrine/Metabolic History: hair growth, hirsutism Hematologic History: Reports: None Immunologic History: Reports: None Oncologic (Cancer) History: Reports: None Dermatologic History: Reports: Other (See Below) Other Dermatologic History: acne, foreign body in hand - Infectious Disease History Infectious Disease History: Reports: Chicken Pox - Past Surgical History Head Surgeries/Procedures: Reports: None HEENT Surgical History: Reports: Naso-Sinus Surgery, Oral Surgery, Tonsillectomy Other HEENT Surgeries/Procedures: Septoplasty Cardiovascular Surgical History: Reports: None GI Surgical History: Reports: Cholecystectomy, Colonoscopy, EGD Female Surgical History: Reports: Hysterectomy, Tubal Ligation Other Female Surgeries/Procedures: pt still has ovaries. Endocrine Surgical History: Reports: None Neurological Surgical History: Reports: None Musculoskeletal Surgical History: Reports: None Oncologic Surgical History: Reports: None - SUBSTANCE USE Smoking Status *Q: Never Smoker Second Hand Smoke Exposure: No Days Per Week of Alcohol Use: 0 Recreational Drug Use History: No - HOME MEDS Home Medications: Home Meds Spironolactone 100 mg PO BID 06/12/17 [History] Cyclobenzaprine [Flexeril] 5 mg PO TID PRN 08/10/17 [History] Hyoscyamine Sulfate [Levsin] 0.125 mg PO QID PRN 08/10/17 [History] Ondansetron [Zofran ODT] 4 mg PO Q6H PRN 08/10/17 [History] - CURRENT (IN HOUSE) MEDS Current Meds: Current Medications Lactated Ringer's (Ringers, Lactated) 1,000 mls @ 125 mls/hr IV ASDIRECTED LUIS ANTONIO Last Admin: 08/11/17 07:50 Dose: 125 mls/hr Lidocaine/Sodium Bicarbonate (Buffered Lidocaine 1% In Ns 8.4%) 0.25 ml IV ONETIME PRN PRN Reason: Prior to IV Start Scopolamine (Transderm-Scop) 1.5 mg TRDERM Q72H PRN PRN Reason: Nausea/Vomiting Sodium Chloride (Saline Flush) 10 ml FLUSH ASDIRECTED PRN PRN Reason: Keep Vein Open Discontinued Medications Bupivacaine HCl (Marcaine 0.5%) Confirm Administered Dose 30 ml .ROUTE .STK-MED ONE Stop: 08/11/17 07:36
[2017-08-11] MEDS ORDERED: Lidocaine 1% 4 ML ONE (09:18)
[2017-08-11] MEDS ORDERED: Midazolam 1 MG/ML 2 ML SDV ONE (09:18)
[2017-08-11] MEDS ORDERED: ceFAZolin 1 GM Vial ONE (09:18)
[2017-08-11] MEDS ORDERED: Propofol 200 MG/20 ML SDV ONE ×2 (09:18→10:02)
[2017-08-11] MEDS ORDERED: Ondansetron 4 MG/2 ML SDV ONE (09:18)
[2017-08-11] MEDS ORDERED: Rocuronium 50 MG/5 ML Vial ONE (09:18)
[2017-08-11] MEDS ORDERED: fentaNYL 250 MCG/5 ML SDV ONE (09:18)
[2017-08-11] MEDS ORDERED: Dexamethasone 4 MG/ML 5 ML MDV ONE (09:42)
[2017-08-11] MEDS ORDERED: Neostigmine Methylsulfate 1 MG/ML 5 ML Syringe ONE (10:00)
[2017-08-11] MEDS ORDERED: Acetaminophen/oxyCODONE 325-5 MG Tab PO PRN (10:06)
[2017-08-11] MEDS ORDERED: Ketorolac 30 MG/ML SDV ONE (10:07)
[2017-08-11] MEDS ORDERED: Ketorolac 30 MG/ML SDV IVPUSH SCH (10:15)
--- NOTE | 2017-08-11 10:16 | PCM.OPNOTE ---
- General Post-Op/Procedure Note Date of Surgery/Procedure: 08/11/17 Operative Procedure(s): Laparoscopy with bilateral oophorectomy Findings: Ovaries were minimally enlarged and had a very tense epithelium with findings consistent with polycystic ovarian syndrome. No significant scarring was noted. Appendix was noninflamed and normal in appearance. Patient status post cholecystectomy. The liver edge appears normal. Pre Op Diagnosis: 1. Polycystic ovarian syndrome. 2. Dyspareunia. 3. Hirsutism Post-Op Diagnosis: Same Anesthesia Technique: General ET Tube Other Anesthesia Type: Marcaine 0.5% locallyapproximate 3-5 mL at each incision site Primary Surgeon: Juan Carlos Mcdonald Secondary Surgeon: Zaire Hough Anesthesia Provider: Saida De La Fuente Beef Cattle Farmer: Agustina Moffett Reason Beef Cattle Farmer Was Necessary: Quality of care, patient safety, retraction Role of Beef Cattle Farmer: Quality of care, patient's safety, retraction Pathology: Bilateral ovaries Fluid Replacement, Intraop: 1,500 (Crystalloid) Output, Urine Amount: 40 Drain/Tube Comments:: Indwelling bladder catheter urine surgery only. It was removed at the end of the case. Complications: None Condition: Good Free Text/Narrative:: Surgery duration: 24 minutes Procedure: The patient was taken to the operating room and placed in supine position on the operating table. She received 2 g of Ancef preoperatively for infection prophylaxis and had sequential compression stockings in place for DVT prophylaxis. IV general anesthesia and endotracheal tube was placed. The patient was then prepped in usual fashion and draped in usual manner. A Allen catheter was placed and a sponge stick was placed in the vagina for manipulation as patient has had a hysterectomy. The umbilical and suprapubic incision sites were then developed. 3 5 mL of Marcaine 0.5% were used to infiltrate these 2 sites and eventually a third lateral site which was quarter inch in length. Verres needles placed, pneumoperitoneum was established using 3.0 L of CO2. Laps Sleeve and trocar were then placed. Under direct visualization superpubic and eventually the right lateral sleeves were placed in a similar fashion. Ovaries were identified, found to be as described above. There were laded away from the pelvic sidewall and using a and Enseal vessel closure does not device the infraumbilical pelvic ligament was crossclamped and cauterized. The ovaries were removed bilaterally in a similar fashion. The lower incision and suprapubic area was then enlarged to accommodate a 10 mm port. The port was placed, Endo Catch bag was used to remove the ovary. Same was done with second ovary. The lower abdominal incisions closed at the fascial level with 0 Vicryl suture in a short running stitch. The pneumoperitoneum was reversed and the skin incisions were closed. The suprapubic site was closed with a running suture of 3 -0 Monocryl. A single stitch of 3-0 Monocryl subcuticularly in each of the other 2 sites. therefore further approximated with Dermabond skin glue. At this point the surgery was discontinued and patient was awakened from general endotracheal anesthesia. It should be noted that she had the indwelling bladder catheter removed prior to reversal of anesthesia and had the stick sponge removed also. She left the operating room in good condition.
[2017-08-11] MEDS ORDERED: Haloperidol Lactate 5 MG/ML SDV IVPUSH ONE (10:23)
[2017-08-11] MEDS ORDERED: Midazolam 1 MG/ML 2 ML SDV IVPUSH PRN (10:23)
[2017-08-11] MEDS ORDERED: diphenhydrAMINE 50 MG/ML SDV IVPUSH PRN (10:23)
[2017-08-11] MEDS ORDERED: HYDROmorphone 0.5 MG/0.5 ML Syringe ONE (10:23)
[2017-08-11] MEDS ORDERED: HYDROmorphone 1 MG/ML Syringe ONE (10:25)
[2017-08-11] MEDS ORDERED: fentaNYL 100 MCG/2 ML SDV ONE (10:28)
[2017-08-11] MEDS: HYDROmorphone 0.5 MG/0.5 ML Syringe IVPUSH PRN ×2 (10:29→11:02)
[2017-08-11] MEDS: fentaNYL 100 MCG/2 ML SDV IVPUSH PRN ×2 (10:39→10:58)
[2017-08-11 14:24] VITALS: BP 93/56
--- NOTE | 2017-08-11 14:53 | PCM48HPAN ---
Post Anesthesia Note - EVALUATION WITHIN 48HRS OF ANESTHETIC Vital Signs in Normal Range: Yes Patient Participated in Evaluation: Yes Respiratory Function Stable: Yes Airway Patent: Yes Cardiovascular Function Stable: Yes Hydration Status Stable: Yes Pain Control Satisfactory: Yes Nausea and Vomiting Control Satisfactory: Yes Mental Status Recovered: Yes
== END 2017-08-11 12:43 | disposition home or self-care (01) ==
LOC: JD.SDS 07:32
PROVIDERS: ATTEND Obstetrics & Gynecology
DX: N83.202 Unspecified ovarian cyst, left side (principal); N83.201 Unspecified ovarian cyst, right side; N83.8 Other noninflammatory disorders of ovary, fallopian tube and broad ligament; Z88.0 Allergy status to penicillin; J30.2 Other seasonal allergic rhinitis; Z79.899 Other long term (current) drug therapy; Z90.49 Acquired absence of other specified parts of digestive tract; Z98.890 Other specified postprocedural states; Z98.51 Tubal ligation status; Z90.710 Acquired absence of both cervix and uterus
CPT/HCPCS: 36415; 58661; 81003; 82565; 85025; 86850; 86900; 86901; A9270; J0690; J1100; J1170; J1200; J1885; J2250; J2405; J2710; J3010; J7120; 00840; J2704

== ENCOUNTER 2017-08-12 20:15 | Emergency (ER) | payer SELFPAY ==
[2017-08-12] MEDS ORDERED: Sodium Chloride 0.9% 1,000 ML IV STA (20:57)
[2017-08-12] MEDS ORDERED: Sodium Chloride 0.9% 10 ML Syringe FLUSH PRN (20:57)
[2017-08-12] MEDS ORDERED: Ondansetron 4 MG/2 ML SDV IVPUSH ONE (20:57)
[2017-08-12] MEDS ORDERED: HYDROmorphone 1 MG/ML Syringe IVPUSH ONE ×2 (20:58→22:19)
--- NOTE | 2017-08-12 21:04 | EDM.PDOC ---
ED HPI GENERAL MEDICAL PROBLEM - General Chief Complaint: Abdominal Pain Stated Complaint: ISSUES ASSOCIATED WITH YESTERDAYS SURGERY Time Seen by Provider: 08/12/17 20:51 Source of Information: Reports: Patient History Limitations: Reports: No Limitations - History of Present Illness INITIAL COMMENTS - FREE TEXT/NARRATIVE: The patient presents with abdominal pain and distention. She had her ovaries removed yesterday. She had a hysterectomy in March. She has a history of chronic pelvic and abdominal pain. She has seen many specialists and now they have removed her uterus and ovaries. She denies fever but she has chills. She has nausea but no vomiting. She has no appetite. She has no dysuria. She has no cough. She has no edema or pain in her legs. She is more distended in her abdomen from this morning. Onset: Gradual Duration: Day(s): (yesterday) Location: Reports: Abdomen, Pelvis Quality: Reports: Sharp Severity: Severe Improves with: Reports: None Worsens with: Reports: None Associated Symptoms: Reports: Fever/Chills, Nausea/Vomiting. Denies: Cough, Shortness of Breath Lower Abdominal Pain Score (Numeric/FACES): 10 - Related Data Allergies Allergy/AdvReac Type Severity Reaction Status Date / Time Penicillins Allergy Hives Verified 08/12/17 20:36 Home Meds: Home Meds Spironolactone 100 mg PO BID 06/12/17 [History] Cyclobenzaprine [Flexeril] 5 mg PO TID PRN 08/10/17 [History] Hyoscyamine Sulfate [Levsin] 0.125 mg PO QID PRN 08/10/17 [History] Acetaminophen/oxyCODONE [Percocet 325-5 MG] 2 tab PO Q4H PRN #20 tablet [Rx] Ibuprofen 600 mg PO Q4H PRN #30 tablet 08/11/17 [Rx] Past Medical History - Past Health History Medical/Surgical History: Denies Medical/Surgical History HEENT History: Reports: Impaired Vision Other HEENT History: sinus surgery Cardiovascular History: Reports: None Respiratory History: Reports: None Gastrointestinal History: Reports: Other (See Below) Other Gastrointestinal History: chronic abdominal pains, Genitourinary History: Reports: UTI, Recurrent [employer] History: Reports: Polycystic Ovaries, Other OB/BYN History: Ovarian Cysts, Laparoscopy Musculoskeletal History: Reports: None, Fracture Neurological History: Reports: Migraines Psychiatric History: Reports: None Endocrine/Metabolic History: Reports: Other (See Below) Other Endocrine/Metabolic History: hair growth, hirsutism Hematologic History: Reports: None Immunologic History: Reports: None Oncologic (Cancer) History: Reports: None Dermatologic History: Reports: Other (See Below) Other Dermatologic History: acne, foreign body in hand - Infectious Disease History Infectious Disease History: Reports: Chicken Pox - Past Surgical History Head Surgeries/Procedures: Reports: None HEENT Surgical History: Reports: Naso-Sinus Surgery, Oral Surgery, Tonsillectomy Other HEENT Surgeries/Procedures: Septoplasty Cardiovascular Surgical History: Reports: None GI Surgical History: Reports: Cholecystectomy, Colonoscopy, EGD Female Surgical History: Reports: Hysterectomy, Tubal Ligation Other Female Surgeries/Procedures: pt still has ovaries. Endocrine Surgical History: Reports: None Neurological Surgical History: Reports: None Musculoskeletal Surgical History: Reports: None Oncologic Surgical History: Reports: None Social & Family History - Family History Family Medical History: Noncontributory - Tobacco Use Smoking Status *Q: Never Smoker Second Hand Smoke Exposure: No - Caffeine Use Caffeine Use: Reports: None Caffeine Use Comment: 1-2 times per week, occ coffee - Alcohol Use Days Per Week of Alcohol Use: 0 - Recreational Drug Use Recreational Drug Use: No - Living Situation & Occupation Living situation: Reports: (), with Family 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 Denies: Fever HEENT: Reports: No Symptoms Respiratory: Reports: No Symptoms Cardiovascular: Reports: No Symptoms Endocrine: Reports: No Symptoms GI/Abdominal: Reports: Abdominal Pain, Nausea. Denies: Diarrhea, Vomiting : Reports: No Symptoms Musculoskeletal: Reports: No Symptoms Skin: Reports: No Symptoms Neurological: Reports: No Symptoms ED EXAM, GI/ABD - Physical Exam Exam: See Below Exam Limited By: No Limitations General Appearance: Alert, No Apparent Distress Ears: Normal External Exam Nose: Normal Inspection Head: Atraumatic, Normocephalic Neck: Normal Inspection Respiratory/Chest: No Respiratory Distress, Lungs Clear, Normal Breath Sounds Cardiovascular: Regular Rate, Rhythm, No Edema, No Murmur GI/Abdominal Exam: Soft, Other (Mild to moderate abdominal distention. Generalized pain upon palpation. Three incisions with no redness, edema or drainage.) Course - Vital Signs Last Recorded V/S: Last Vital Signs Temp 97.4 F 08/12/17 20:34 Pulse 110 H 08/12/17 20:34 Resp 16 08/12/17 20:34 BP 124/92 H 08/12/17 20:34 Pulse Ox 99 08/12/17 20:34 - Orders/Labs/Meds Orders: Active Orders 24 hr Category Date Time Status Peripheral IV Care [RC] . DIRECTED Care 08/12/17 20:57 Active Abdomen Pelvis w Cont [CT] Stat Exams 08/12/17 20:57 Taken HYDROmorphone [Dilaudid] Med 08/13/17 00:00 Once 1 mg IVPUSH ONETIME ONE Ondansetron [Zofran] Med 08/13/17 00:00 Once 4 mg IVPUSH ONETIME ONE Sodium Chloride 0.9% [Saline Flush] Med 08/12/17 20:57 Active 10 ml FLUSH ASDIRECTED PRN ED Antiemetic Medication Reflex [OM.PC] Stat Oth 08/12/17 20:57 Ordered Peripheral IV Insertion Adult [OM.PC] Stat Oth 08/12/17 20:57 Ordered Medication Orders Sodium Chloride (Saline Flush) 10 ml FLUSH ASDIRECTED PRN PRN Reason: Keep Vein Open Last Admin: 08/12/17 21:25 Dose: 10 ml Labs: Laboratory Tests 08/12/17 08/12/17 08/12/17 Range/Units 21:34 21:34 22:45 WBC 12.12 H (3.98-10.04) K/mm3 RBC 3.81 L (3.98-5.22) M/mm3 Hgb 11.4 (11.2-15.7) gm/L Hct 33.7 L (34.1-44.9) % MCV 88.5 (79.4-94.8) fl MCH 29.9 (25.6-32.2) pg MCHC 33.8 (32.2-35.5) g/dl RDW Std Deviation 40.5 (36.4-46.3) fL Plt Count 256 (182-369) K/mm3 MPV 9.6 (9.4-12.3) fl Neut % (Auto) 54.0 (34.0-71.1) % Lymph % (Auto) 38.4 (19.3-51.7) % [place] % (Auto) 5.9 (4.7-12.5) % Eos % (Auto) 1.3 (0.7-5.8) Baso % (Auto) 0.2 (0.1-1.2) % Neut # (Auto) 6.54 H (1.56-6.13) K/mm3 Lymph # (Auto) 4.65 H (1.18-3.74) K/mm3 [place] # (Auto) 0.72 H (0.24-0.36) K/mm3 Eos # (Auto) 0.16 (0.04-0.36) K/mm3 Baso # (Auto) 0.03 (0.01-0.08) K/mm3 Sodium 143 (136-145) mEq/L Potassium 3.6 (3.5-5.1) mEq/L Chloride 109 H (98-107) mEq/L Carbon Dioxide 26 (21-32) mEq/L Anion Gap 11.6 (5-15) BUN 14 (7-18) mg/dL Creatinine 0.7 (0.55-1.02) mg/dL Est Cr Clr Drug Dosing 92.71 mL/min Estimated GFR (MDRD) > 60 (>60) mL/min BUN/Creatinine Ratio 20.0 H (14-18) Glucose 102 (74-106) mg/dL Calcium 8.2 L (8.5-10.1) mg/dL Total Bilirubin 0.2 (0.2-1.0) mg/dL AST 15 (15-37) U/L ALT 19 (14-59) U/L Alkaline Phosphatase 67 (46-116) U/L Total Protein 5.7 L (6.4-8.2) g/dl Albumin 3.1 L (3.4-5.0) g/dl Globulin 2.6 gm/dL Albumin/Globulin Ratio 1.2 (1-2) Lipase 162 (73-393) U/L Urine Color Yellow (Yellow) Urine Appearance Clear (Clear) Urine pH 6.0 (5.0-8.0) Ur Specific [place] 1.020 (1.005-1.030) Urine Protein Negative (Negative) Urine Glucose (UA) Negative (Negative) Urine Ketones Negative (Negative) Urine Occult Blood Negative (Negative) Urine Nitrite Negative (Negative) Urine Bilirubin Negative (Negative) Urine Urobilinogen 0.2 (0.2-1.0) Ur Leukocyte Esterase Negative (Negative) Urine RBC 0-5 (0-5) /hpf Urine WBC 0-5 (0-5) /hpf Ur Epithelial Cells 0-5 (0-5) /hpf Urine Bacteria Rare (FEW) /hpf Urine Mucus Few (FEW) /hpf Meds: Medications Generic Name Dose Route Start Last Admin Trade Name Freq PRN Reason Stop Dose Admin Sodium Chloride 10 ml 08/12/17 20:57 08/12/17 21:25 Saline Flush FLUSH 10 ml ASDIRECTED PRN Administration Keep Vein Open Discontinued Medications Generic Name Dose Route Start Last Admin Trade Name Freq PRN Reason Stop Dose Admin Diatrizoate Meglum/Diatrizoate Sod 90 ml 08/12/17 23:03 08/12/17 23:04 Gastrografin 37% PO 08/12/17 23:04 90 ml ONETIME ONE Administration Hydromorphone HCl 1 mg 08/12/17 20:58 08/12/17 21:22 Dilaudid IVPUSH 08/12/17 20:59 1 mg ONETIME ONE Administration Hydromorphone HCl 1 mg 08/12/17 22:19 08/12/17 22:36 Dilaudid IVPUSH 08/12/17 22:20 1 mg ONETIME ONE Administration Sodium Chloride 1,000 mls @ 1,000 mls/hr 08/12/17 20:57 08/12/17 21:20 Normal Saline IV 08/12/17 21:56 1,000 mls/hr .BOLUS STA Administration Iopamidol 100 ml 08/12/17 23:05 08/12/17 23:06 Isovue-300 (61%) IVPUSH 08/12/17 23:06 100 ml ONETIME ONE Administration Ondansetron HCl 4 mg 08/12/17 20:57 08/12/17 21:21 Zofran IVPUSH 08/12/17 20:58 4 mg ONETIME ONE Administration - Re-Assessments/Exams Free Text/Narrative Re-Assessment/Exam: 08/12/17 21:04 I ordered an IV NS 1L bolus, zofran 4mg IV, dilaudid 1mg IV, labs, UA, and a CT of her abdomen and pelvis. 08/13/17 00:02 Her WBC was elevated at 12.12. Her Hgb was normal. Her CMP was negative. Her UA shows no UTI. Her CT shows postoperative pneumoperitoneum of uncertain significance. This is from the surgery. I will give her more zofran and dilaudid. I will discharge her home. Departure - Departure Time of Disposition: 00:05 Disposition: Home, Self-Care 01 Condition: Good Clinical Impression: Postoperative abdominal pain - Discharge Information Referrals: Juan Carlos Mcdonald MD [Primary Care Provider] - 1 Week Forms: ED Department Discharge Additional Instructions: Take your medication as prescribed. Follow up with Dr Mcdonald as scheduled. Please return if you have worsening nausea, vomiting and abdominal pain. - My Orders Last 24 Hours: My Active Orders 08/12/17 20:57 Peripheral IV Care [RC] . DIRECTED Abdomen Pelvis w Cont [CT] Stat Sodium Chloride 0.9% [Saline Flush] 10 ml FLUSH ASDIRECTED PRN ED Antiemetic Medication Reflex [OM.PC] Stat Peripheral IV Insertion Adult [OM.PC] Stat 08/13/17 00:00 HYDROmorphone [Dilaudid] 1 mg IVPUSH ONETIME ONE Ondansetron [Zofran] 4 mg IVPUSH ONETIME ONE - Assessment/Plan Last 24 Hours: My Active Orders 08/12/17 20:57 Peripheral IV Care [RC] . DIRECTED Abdomen Pelvis w Cont [CT] Stat Sodium Chloride 0.9% [Saline Flush] 10 ml FLUSH ASDIRECTED PRN ED Antiemetic Medication Reflex [OM.PC] Stat Peripheral IV Insertion Adult [OM.PC] Stat 08/13/17 00:00 HYDROmorphone [Dilaudid] 1 mg IVPUSH ONETIME ONE Ondansetron [Zofran] 4 mg IVPUSH ONETIME ONE
[2017-08-12] MEDS ORDERED: Iopamidol 755 Mg/ML 100 ML Bottle IVPUSH ONE (23:03)
[2017-08-12] MEDS ORDERED: Diatrizoate Meglumine/Diatrizoate Sodium 37% 120 ML Bottle PO ONE (23:03)
[2017-08-12] MEDS ORDERED: Iopamidol 612 MG/ML 100 ML Bottle IVPUSH ONE (23:05)
[2017-08-13] MEDS ORDERED: Ondansetron 4 MG/2 ML SDV IVPUSH ONE
[2017-08-13] MEDS ORDERED: HYDROmorphone 1 MG/ML Syringe IVPUSH ONE
[2017-08-13 00:40] VITALS: BP 104/72
--- NOTE | 2017-08-13 06:57 | CT ---
CT abdomen and pelvis Technique: Multiple axial sections were obtained from above the dome of the diaphragm inferiorly to the pubic symphysis. Intravenous and oral contrast was utilized. Delayed images were also obtained through the bladder. Comparison: Previous abdominal x-ray performed on 04/15/[address] abdomen and pelvis exam performed on 10/14/16. Findings: Small portion of the visualized lung bases show nothing acute. Free air is identified within the abdomen. Liver shows no focal parenchymal abnormality. Spleen appears within normal limits. Adrenal glands show no nodule. Pancreas is unremarkable. Kidneys show symmetric contrast enhancement without hydronephrosis or mass. Aorta shows no aneurysmal dilatation. No retroperitoneal adenopathy or mesenteric abnormalities are seen. Small amount of air is seen within the lower anterior abdominal wall. There is mild increased density within the subcutaneous fat within the right lower abdominal wall presumably due to previous surgery. Mild increased stool is noted within the colon. Delayed images show contrast within the distal ureters and within the bladder. Small amount of air is identified within the bladder. This air is presumably due to recent instrumentation. Appendix is seen which appears normal. No bowel dilatation is seen. No free fluid is identified. Impression: 1. Free air within the abdomen. 2. Small amount of air within the bladder presumably from recent instrumentation. 3. Air within the lower anterior abdominal wall as well as increased density within the right lower subcutaneous fat is likely from recent surgery. 4. Mild increased stool within the colon. 5. No acute abnormality is appreciated. Diagnostic code #2 Agree with preliminary report issued by [facility] ([facility] preliminary report dictated on 08/13/17, 12:33 AM Central Time)
== END 2017-08-13 00:35 | disposition home or self-care (01) ==
LOC: JD.ED 20:15
DX: G89.18 Other acute postprocedural pain (principal); R10.2 Pelvic and perineal pain; Z90.722 Acquired absence of ovaries, bilateral; Z90.710 Acquired absence of both cervix and uterus; Z88.0 Allergy status to penicillin
CPT/HCPCS: 36415; 74177; 80053; 81001; 83690; 85025; 96361; 96374; 96375; 96376; 99284; J1170; J2405; J7040; J7050; Q9963; Q9967

== ENCOUNTER 2018-01-07 14:39 | Emergency (ER) | payer BC ==
[2018-01-07 14:57] VITALS: BP 100/67
[2018-01-07] MEDS ORDERED: Ondansetron 4 MG/2 ML SDV IVPUSH ONE (15:12)
[2018-01-07] MEDS ORDERED: Sodium Chloride 0.9% 1,000 ML IV SCH (15:15)
[2018-01-07] MEDS ORDERED: Dicyclomine 20 MG/2 ML SDV IM ONE (15:15)
--- NOTE | 2018-01-07 15:21 | EDM.PDOC ---
ED HPI GENERAL MEDICAL PROBLEM - General Chief Complaint: Gastrointestinal Problem Stated Complaint: VOMITING Time Seen by Provider: 01/07/18 14:51 Source of Information: Reports: Patient, Family (Mother), Old Records, RN Notes Reviewed History Limitations: Reports: No Limitations - History of Present Illness INITIAL COMMENTS - FREE TEXT/NARRATIVE: The patient states that she developed severe upper central abdominal pain around 02:30 this morning, followed by nausea, vomiting, and slight watery diarrhea around 04:30. The patient acknowledges that she has a long history of chronic abdominal pain of undetermined etiology, but states that the nausea, vomiting, and diarrhea are new. She states that she took some Tylenol, but vomited it up shortly thereafter. She states that she has not taken any other medications to try to treat her symptoms today. No recent fever. No recent urinary symptoms. Review of prior medical records indicates that this is the patient's ( approximately) 37th visit for similar complaints, including by me on 04/15/2017 and 09/04/2015. The patient receives Dilaudid on the vast majority of her visits , and has explicitly asked for narcotics in the past. Review of the [place] PMPi finds that the patient has 19 prescriptions for controlled substances by 15 different prescribers, filled at 5 different pharmacies since 07/20/2015. When seen by me on 04/15/2017, a standard abdominal pain workup was unremarkable. It was explained to the patient at that time that the emergency departments are not in a position to manage chronic pain. I recommended that she formulate a plan for treating exacerbations of her pain with her Pressurizer. I also suspected that her symptoms may be related to depression, and recommended that she follow-up with a Psychiatrist, however, it does not appear that the patient has done that, as she is not currently on any medications. The patient states that she does not currently have a PCP. Her Pressurizer is Dr. Fagan. 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 History: Reports: Polycystic Ovaries, Musculoskeletal History: Reports: Fracture Endocrine/Metabolic History: Reports: Other (See Below) (Hirsutism) - Infectious Disease History Infectious Disease History: Reports: Chicken Pox - Past Surgical History HEENT Surgical History: Reports: Naso-Sinus Surgery (Septoplasty), Oral Surgery ([employer] teeth extraction), Tonsillectomy GI Surgical History: Reports: Cholecystectomy, Colonoscopy, EGD Female Surgical History: Reports: Hysterectomy, Oophorectomy (08/11/2017), Tubal Ligation Social & Family History - Family History Family Medical History: Noncontributory - Tobacco Use Smoking Status *Q: Never Smoker Second Hand Smoke Exposure: No - Caffeine Use Caffeine Use: Reports: Coffee, Energy Drinks, Soda, Tea Caffeine Use Comment: 1-2 times per week, occ coffee - Alcohol Use Alcohol Use History: Yes Days Per Week of Alcohol Use: 0 Alcohol Use Frequency: Socially - Recreational Drug Use Recreational Drug Use: No - Living Situation & Occupation Living situation: Reports: (), with Family 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 ED EXAM, GI/ABD - Physical Exam Exam: See Below Exam Limited By: No Limitations General Appearance: Alert, WD/WN, Mild Distress (Appears uncomfortable, but in no distress) Eyes: Bilateral: Normal Appearance, EOMI Ears: Normal External Exam, Hearing Grossly Normal Nose: Normal Inspection, No Blood Throat/Mouth: Normal Inspection, Normal Lips, Normal Voice, No Airway Compromise Head: Atraumatic, Normocephalic Neck: Normal Inspection, Full Range of Motion Respiratory/Chest: No Respiratory Distress, Lungs Clear, Normal Breath Sounds, No Accessory Muscle Use Cardiovascular: Normal Peripheral Pulses, Regular Rate, Rhythm, No Edema, No Gallop, No JVD, No Murmur, No Rub GI/Abdominal Exam: Normal Bowel Sounds, Soft, No Organomegaly, No Distention, No Abnormal Bruit, No Mass, Tender (Mild, generalized, non-focal) (Female) Exam: Deferred Rectal (Female) Exam: Deferred Back Exam: Normal Inspection, Full Range of Motion, NT Extremities: Normal Inspection, Normal Range of Motion, No Pedal Edema, Normal Capillary Refill Neurological: Alert, Oriented, Normal Cognition, No Motor/Sensory Deficits Psychiatric: Normal Affect Skin Exam: Warm, Dry, Intact, Normal Color, No Rash Course - Vital Signs Last Recorded V/S: Last Vital Signs Temp 35.8 C 01/07/18 14:55 Pulse 113 H 01/07/18 14:55 Resp 20 01/07/18 14:55 BP 100/67 01/07/18 14:55 Pulse Ox 100 01/07/18 14:55 - Orders/Labs/Meds Orders: Active Orders 24 hr Category Date Time Status CULTURE URINE [RM] Stat Lab 01/07/18 17:07 Ordered HCG QUALITATIVE,URINE [URCHEM] Stat Lab 01/07/18 16:16 Ordered UA W/MICROSCOPIC [URIN] Stat Lab 01/07/18 16:16 Ordered Sodium Chloride 0.9% [Normal Saline] 1,000 ml Med 01/07/18 15:15 Active IV ASDIRECTED Medication Orders Sodium Chloride (Normal Saline) 1,000 mls @ 150 mls/hr IV ASDIRECTED LUIS ANTONIO Last Admin: 01/07/18 15:24 Dose: 150 mls/hr Labs: Laboratory Tests 01/07/18 01/07/18 01/07/18 Range/Units 15:17 15:17 16:16 WBC 6.08 (3.98-10.04) K/mm3 RBC 5.76 H (3.98-5.22) M/mm3 Hgb 16.7 H (11.2-15.7) gm/L Hct 48.7 H (34.1-44.9) % MCV 84.5 (79.4-94.8) fl MCH 29.0 (25.6-32.2) pg MCHC 34.3 (32.2-35.5) g/dl RDW Std Deviation 39.3 (36.4-46.3) fL Plt Count 240 (182-369) K/mm3 MPV 9.7 (9.4-12.3) fl Neutrophils % (Manual) 76 H (40-60) % Band Neutrophils % 0 (0-10) % Lymphocytes % (Manual) 17 L (20-40) % Atypical Lymphs % 0 % Monocytes % (Manual) 7 (2-10) % Eosinophils % (Manual) 0 L (0.7-5.8) % Basophils % (Manual) 0 L (0.1-1.2) Platelet Estimate Adequate RBC Morph Comment Normal Sodium 143 (136-145) mEq/L Potassium 3.3 L (3.5-5.1) mEq/L Chloride 103 (98-107) mEq/L Carbon Dioxide 29 (21-32) mEq/L Anion Gap 14.3 (5-15) BUN 10 (7-18) mg/dL Creatinine 0.7 (0.55-1.02) mg/dL Est Cr Clr Drug Dosing 91.90 mL/min Estimated GFR (MDRD) > 60 (>60) mL/min BUN/Creatinine Ratio 14.3 (14-18) Glucose 109 H (74-106) mg/dL Calcium 10.0 (8.5-10.1) mg/dL Total Bilirubin 0.5 (0.2-1.0) mg/dL AST 37 (15-37) U/L ALT 61 H (14-59) U/L Alkaline Phosphatase 107 (46-116) U/L Total Protein 8.6 H (6.4-8.2) g/dl Albumin 4.7 (3.4-5.0) g/dl Globulin 3.9 gm/dL Albumin/Globulin Ratio 1.2 (1-2) Lipase 192 (73-393) U/L Urine Color Dark yellow (Yellow) Urine Appearance Slt cloudy H (Clear) Urine pH 6.0 (5.0-8.0) Ur Specific Lindsay > or = 1.030 (1.005-1.030) Urine Protein 1+ H (Negative) Urine Glucose (UA) Negative (Negative) Urine Ketones Trace H (Negative) Urine Occult Blood Trace-intact H (Negative) Urine Nitrite Negative (Negative) Urine Bilirubin 1+ H (Negative) Urine Urobilinogen 0.2 (0.2-1.0) Ur Leukocyte Esterase Negative (Negative) Urine RBC 0-5 (0-5) /hpf Urine WBC 5-10 H (0-5) /hpf Ur Epithelial Cells 5-10 H (0-5) /hpf Amorphous Sediment Few H (NOT SEEN) /hpf Urine Bacteria Few (FEW) /hpf Urine Mucus Many H (FEW) /hpf Urine HCG, Qual (NEGATIVE) 04/12/18 Range/Units 16:16 WBC (3.98-10.04) K/mm3 RBC (3.98-5.22) M/mm3 Hgb (11.2-15.7) gm/L Hct (34.1-44.9) % MCV (79.4-94.8) fl MCH (25.6-32.2) pg MCHC (32.2-35.5) g/dl RDW Std Deviation (36.4-46.3) fL Plt Count (182-369) K/mm3 MPV (9.4-12.3) fl Neutrophils % (Manual) (40-60) % Band Neutrophils % (0-10) % Lymphocytes % (Manual) (20-40) % Atypical Lymphs % % Monocytes % (Manual) (2-10) % Eosinophils % (Manual) (0.7-5.8) % Basophils % (Manual) (0.1-1.2) Platelet Estimate RBC Morph Comment Sodium (136-145) mEq/L Potassium (3.5-5.1) mEq/L Chloride (98-107) mEq/L Carbon Dioxide (21-32) mEq/L Anion Gap (5-15) BUN (7-18) mg/dL Creatinine (0.55-1.02) mg/dL Est Cr Clr Drug Dosing mL/min Estimated GFR (MDRD) (>60) mL/min BUN/Creatinine Ratio (14-18) Glucose (74-106) mg/dL Calcium (8.5-10.1) mg/dL Total Bilirubin (0.2-1.0) mg/dL AST (15-37) U/L ALT (14-59) U/L Alkaline Phosphatase (46-116) U/L Total Protein (6.4-8.2) g/dl Albumin (3.4-5.0) g/dl Globulin gm/dL Albumin/Globulin Ratio (1-2) Lipase (73-393) U/L Urine Color (Yellow) Urine Appearance (Clear) Urine pH (5.0-8.0) Ur Specific Lindsay (1.005-1.030) Urine Protein (Negative) Urine Glucose (UA) (Negative) Urine Ketones (Negative) Urine Occult Blood (Negative) Urine Nitrite (Negative) Urine Bilirubin (Negative) Urine Urobilinogen (0.2-1.0) Ur Leukocyte Esterase (Negative) Urine RBC (0-5) /hpf Urine WBC (0-5) /hpf Ur Epithelial Cells (0-5) /hpf Amorphous Sediment (NOT SEEN) /hpf Urine Bacteria (FEW) /hpf Urine Mucus (FEW) /hpf Urine HCG, Qual Negative (NEGATIVE) Meds: Medications Generic Name Dose Route Start Last Admin Trade Name Freq PRN Reason Stop Dose Admin Sodium Chloride 1,000 mls @ 150 mls/hr 01/07/18 15:15 01/07/18 15:24 Normal Saline IV 150 mls/hr ASDIRECTED LUIS ANTONIO Administration Discontinued Medications Generic Name Dose Route Start Last Admin Trade Name Freq PRN Reason Stop Dose Admin Dicyclomine HCl 20 mg 01/07/18 15:15 01/07/18 15:23 Bentyl IM 01/07/18 15:16 20 mg ONETIME ONE Administration Ondansetron HCl 4 mg 01/07/18 15:12 01/07/18 15:23 Zofran IVPUSH 01/07/18 15:13 4 mg ONETIME ONE Administration - Re-Assessments/Exams Free Text/Narrative Re-Assessment/Exam: 01/07/18 17:06 One-view upright abdomen is read by Dr. Suarez as: 1. Air fluid levels within the colon with no bowel dilatation. Findings presumably due to diarrhea. 01/07/18 17:08 The patient's urinalysis, collected by clean catch, appears to be consistent with contamination, not a UTI. I have ordered a urine culture, but do not intend to start an antibiotic at this time. 01/07/18 17:14 Test results discussed with the patient and her mother. Today's workup is grossly unremarkable, and does not swing the cause of the patient's symptoms, however, because of her nausea, vomiting, and diarrhea, she may have viral gastroenteritis. I will discharge her home with prescriptions for Zofran and Bentyl. I recommended that she follow-up with her Pressurizer. Departure - Departure Time of Disposition: 17:15 Disposition: Home, Self-Care 01 Condition: Fair Clinical Impression: Gastroenteritis - Discharge Information Referrals: PCP,None [Primary Care Provider] - Forms: ED Department Discharge Additional Instructions: You were seen in the emergency room for abdominal pain, nausea, vomiting, and slight diarrhea. Workup in the ER included blood work, a urinalysis, urine test, and an x-ray of your abdomen. Your workup was unremarkable, however, based on your history, you are most likely suffering from viral gastroenteritis. Unfortunately, there are no medicines to get rid of the virus - it will have to run its course, however, there are medicines that can treat the symptoms. Prescriptions for the anti-nausea medicine Zofran and the anti-spasm medicine Bentyl have been sent to the [facility] located in the [employer] store. Dissolve one tablet of Zofran on your tongue up to every 8 hours, as needed for nausea/vomiting. Take one tablet of Benadryl up to every 6 hours, as needed for abdominal cramps. Stay well hydrated. Eat a bland diet as tolerated. Follow-up with your Pressurizer, Dr. Best, at the next available appointment. If any other problems, please do not hesitate to return to the ER. - My Orders Last 24 Hours: My Active Orders 01/07/18 15:15 Sodium Chloride 0.9% [Normal Saline] 1,000 ml IV ASDIRECTED 01/07/18 16:16 HCG QUALITATIVE,URINE [URCHEM] Stat UA W/MICROSCOPIC [URIN] Stat 01/07/18 17:07 CULTURE URINE [RM] Stat - Assessment/Plan Last 24 Hours: My Active Orders 01/07/18 15:15 Sodium Chloride 0.9% [Normal Saline] 1,000 ml IV ASDIRECTED 01/07/18 16:16 HCG QUALITATIVE,URINE [URCHEM] Stat UA W/MICROSCOPIC [URIN] Stat 01/07/18 17:07 CULTURE URINE [RM] Stat
--- NOTE | 2018-01-07 16:45 | CR ---
Abdomen: Upright view of the abdomen was obtained. Comparison: Prior abdominal x-ray of 04/15/17. Air-fluid levels are seen within the colon. No bowel dilatation is seen. No free air is seen. Bony structures are unremarkable. Impression: 1. Air fluids levels within the colon with no bowel dilatation. Findings presumably due to diarrhea. Diagnostic code #2
== END 2018-01-07 17:25 | disposition home or self-care (01) ==
LOC: JD.ED 14:39
DX: K52.9 Noninfective gastroenteritis and colitis, unspecified (principal); Z88.0 Allergy status to penicillin
CPT/HCPCS: 36415; 74018; 80053; 81001; 81025; 83690; 85025; 87086; 96361; 96372; 96374; 99284; J0500; J2405; J7040

== ENCOUNTER 2018-05-13 16:35 | Emergency (ER) | payer SELFPAY ==
[2018-05-13 16:51] VITALS: BP 120/75
[2018-05-13] MEDS ORDERED: Sodium Chloride 0.9% 1,000 ML IV ONE (17:17)
[2018-05-13] MEDS ORDERED: Ondansetron 4 MG/2 ML SDV IVPUSH ONE ×2 (17:17→20:07)
[2018-05-13] MEDS ORDERED: HYDROmorphone 0.5 MG/0.5 ML SYRINGE IVPUSH ONE ×2 (17:17→19:23)
--- NOTE | 2018-05-13 17:24 | EDM.PDOC ---
ED HPI GENERAL MEDICAL PROBLEM - General Chief Complaint: Abdominal Pain Stated Complaint: STOMACH PAIN Time Seen by Provider: 05/13/18 16:58 Source of Information: Reports: Patient History Limitations: Reports: No Limitations - History of Present Illness INITIAL COMMENTS - FREE TEXT/NARRATIVE: Patient is a 27-year-old female presents ED complaining of a 2 day history of right lower quadrant abdominal pain. The pain is sharp in nature worsened with palpation of the radiates into her umbilicus. Pain is worsened with riding in a car and/or with any movement. She states she has no gallbladder, ovaries, or cervix. She does have a history of irritable bowel syndrome and takes Levsin for this condition. No diarrhea today. No blood in her stool. Nauseated and takes Zofran intermittently. No emesis. Denies any pain with urination. No recent sexual intercourse. There has been no documented fever. She's had no appetite for the past 2 days. Pain is localized. Right Lower Abdominal Pain Score (Numeric/FACES): 8 - Related Data Allergies Allergy/AdvReac Type Severity Reaction Status Date / Time Penicillins Allergy Hives Verified 05/13/18 16:47 Home Meds: Home Meds Dicyclomine [Bentyl] 20 mg PO Q6H PRN #20 tablet 01/07/18 [Rx] Acetaminophen/HYDROcodone [[place] 325-5 MG] 1 tab PO Q6H PRN #15 tablet 05/13/18 [Rx] Ondansetron [Zofran ODT] 1 tab PO Q8H PRN #15 tab.dis 05/13/18 [Rx] metroNIDAZOLE [Flagyl] 500 mg PO Q8H #30 tab 05/13/18 [Rx] Past Medical History - Past Health History Medical/Surgical History: Denies Medical/Surgical History HEENT History: Reports: Impaired Vision Other HEENT History: sinus surgery Cardiovascular History: Reports: None Respiratory History: Reports: None Gastrointestinal History: Reports: Other (See Below) Other Gastrointestinal History: chronic abdominal pains, Genitourinary History: Reports: UTI, 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: Reports: Polycystic Ovaries, Other RESEARCH DEVELOPMENT MANAGER History: Ovarian Cysts, Laparoscopy Musculoskeletal History: Reports: Fracture Neurological History: Reports: Migraines Psychiatric History: Reports: None Endocrine/Metabolic History: Reports: Other (See Below) Other Endocrine/Metabolic History: hair growth, hirsutism Hematologic History: Reports: None Immunologic History: Reports: None Oncologic (Cancer) History: Reports: None Dermatologic History: Reports: Other (See Below) Other Dermatologic History: acne, foreign body in hand - Infectious Disease History Infectious Disease History: Reports: Chicken Pox - Past Surgical History Head Surgeries/Procedures: Reports: None HEENT Surgical History: Reports: Naso-Sinus Surgery, Oral Surgery, Tonsillectomy Cardiovascular Surgical History: Reports: None GI Surgical History: Reports: Cholecystectomy, Colonoscopy, EGD Female Surgical History: Reports: Hysterectomy, Oophorectomy, Tubal Ligation Neurological Surgical History: Reports: None Oncologic Surgical History: Reports: None Social & Family History - Family History Family Medical History: Noncontributory - Tobacco Use Smoking Status *Q: Never Smoker - Caffeine Use Caffeine Use: Reports: Coffee, Energy Drinks, Soda, Tea Caffeine Use Comment: 1-2 times per week, occ coffee - Recreational Drug Use Recreational Drug Use: No - Living Situation & Occupation Living situation: Reports: (), with Family 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 Denies: Black Stool, Bloody Stool, Constipation, Diarrhea, Distension, Flatus, Hematemesis, Vomiting : Reports: No Symptoms Musculoskeletal: Reports: No Symptoms Skin: Reports: No Symptoms Neurological: Reports: No Symptoms Psychiatric: Reports: No Symptoms ED EXAM, GI/ABD - Physical Exam Exam: See Below Exam Limited By: No Limitations General Appearance: Alert, WD/WN, Mild Distress Ears: Hearing Grossly Normal Nose: Normal Inspection Throat/Mouth: Normal Voice, No Airway Compromise Neck: Normal Inspection, Supple Respiratory/Chest: No Respiratory Distress, Lungs Clear, Normal Breath Sounds, Chest Non-Tender Cardiovascular: Normal Peripheral Pulses, Regular Rate, Rhythm GI/Abdominal Exam: Normal Bowel Sounds, Soft, No Organomegaly, No Distention, Rebound (Right lower quadrant), Tender (Right lower quadrant) (Female) Exam: Deferred (No complaints) Back Exam: Normal Inspection, Full Range of Motion Extremities: Normal Inspection Neurological: Alert, Oriented, CN II-XII Intact, Normal Cognition Psychiatric: Normal Affect, Normal Mood Skin Exam: Warm, Dry, Intact, Normal Color, No Rash Course - Vital Signs Last Recorded V/S: Last Vital Signs Temp 98.8 F 05/13/18 16:47 Pulse 90 05/13/18 16:47 Resp 16 05/13/18 16:47 BP 120/75 05/13/18 16:47 Pulse Ox 100 05/13/18 16:47 - Orders/Labs/Meds Orders: Active Orders 24 hr Category Date Time Status Peripheral IV Care [RC] . DIRECTED Care 05/13/18 17:17 Active Abdomen Pelvis w Cont [CT] Stat Exams 05/13/18 17:16 Taken C DIFFICILE BY PCR W/NAP1 [MOLEC] Stat Lab 05/13/18 19:21 Ordered CULTURE STOOL + SHIGATOX [RM] Stat Lab 05/13/18 19:21 Ordered UA W/MICROSCOPIC [URIN] Stat Lab 05/13/18 17:43 Received WBC, STOOL [OP] Stat Lab 05/13/18 19:21 Ordered Peripheral IV Insertion Adult [OM.PC] Routine Oth 05/13/18 17:17 Ordered Labs: Laboratory Tests 05/13/18 05/13/18 Range/Units 17:43 17:43 WBC 10.33 H (3.98-10.04) K/mm3 RBC 5.59 H (3.98-5.22) M/mm3 Hgb 15.2 (11.2-15.7) gm/L Hct 45.1 H (34.1-44.9) % MCV 80.7 (79.4-94.8) fl MCH 27.2 (25.6-32.2) pg MCHC 33.7 (32.2-35.5) g/dl RDW Std Deviation 41.5 (36.4-46.3) fL Plt Count 318 (182-369) K/mm3 MPV 9.2 L (9.4-12.3) fl Neutrophils % (Manual) 54 (40-60) % Band Neutrophils % 0 (0-10) % Lymphocytes % (Manual) 37 (20-40) % Atypical Lymphs % 0 % Monocytes % (Manual) 7 (2-10) % Eosinophils % (Manual) 1 (0.7-5.8) % Basophils % (Manual) 1 (0.1-1.2) Platelet Estimate Adequate Plt Morphology Comment Normal RBC Morph Comment Normal Sodium 142 (136-145) mEq/L Potassium 3.6 (3.5-5.1) mEq/L Chloride 105 (98-107) mEq/L Carbon Dioxide 24 (21-32) mEq/L Anion Gap 16.6 H (5-15) BUN 16 (7-18) mg/dL Creatinine 0.8 (0.55-1.02) mg/dL Est Cr Clr Drug Dosing 80.41 mL/min Estimated GFR (MDRD) > 60 (>60) mL/min BUN/Creatinine Ratio 20.0 H (14-18) Glucose 102 (74-106) mg/dL Calcium 9.4 (8.5-10.1) mg/dL Total Bilirubin 0.6 (0.2-1.0) mg/dL AST 21 (15-37) U/L ALT 39 (14-59) U/L Alkaline Phosphatase 98 (46-116) U/L C-Reactive Protein 0.4 (<1.0) mg/dL Total Protein 8.3 H (6.4-8.2) g/dl Albumin 4.1 (3.4-5.0) g/dl Globulin 4.2 gm/dL Albumin/Globulin Ratio 1.0 (1-2) Meds: Medications Discontinued Medications Generic Name Dose Route Start Last Admin Trade Name Freq PRN Reason Stop Dose Admin Diatrizoate Meglum/Diatrizoate Sod 90 ml 05/13/18 18:18 05/13/18 18:33 Gastrografin 37% PO 05/13/18 18:19 90 ml ONETIME ONE Administration Hydromorphone HCl 0.5 mg 05/13/18 17:17 05/13/18 17:46 Dilaudid IVPUSH 05/13/18 17:18 0.5 mg ONETIME ONE Administration Hydromorphone HCl 0.5 mg 05/13/18 19:23 05/13/18 19:45 Dilaudid IVPUSH 05/13/18 19:24 0.5 mg ONETIME ONE Administration Sodium Chloride 1,000 mls @ 500 mls/hr 05/13/18 17:17 05/13/18 17:46 Normal Saline IV 05/13/18 19:16 500 mls/hr ONETIME ONE Administration Metronidazole 500 mg/ Premix 100 mls @ 100 mls/hr 05/13/18 19:21 05/13/18 19: 45 IV 05/13/18 20:20 100 mls/hr ONETIME ONE Administration Iopamidol 125 ml 05/13/18 18:18 05/13/18 18:34 Isovue-300 (61%) IVPUSH 05/13/18 18:19 125 ml ONETIME ONE Administration Metronidazole 500 mg 05/13/18 19:21 05/13/18 19:45 Flagyl PO 05/13/18 19:22 500 mg ONETIME ONE Administration Ondansetron HCl 4 mg 05/13/18 17:17 05/13/18 17:46 Zofran IVPUSH 05/13/18 17:18 4 mg ONETIME ONE Administration Ondansetron HCl 4 mg 05/13/18 20:07 05/13/18 20:30 Zofran IVPUSH 05/13/18 20:08 4 mg ONETIME ONE Administration Sodium Chloride 10 ml 05/13/18 17:17 05/13/18 18:36 Saline Flush FLUSH 10 ml ASDIRECTED PRN Administration Keep Vein Open - Re-Assessments/Exams Free Text/Narrative Re-Assessment/Exam: IV established with Dilaudid 0.5 mg IVP, and Zofran 4 mg IVP. I started IV fluids. Initial labs and studies include: CBC, chem 14, CRP, UA, and CT the abdomen and pelvis with oral and IV contrast. Oral contrast would be started. I do want to rule out appendicitis. She has pinpoint tenderness along the right lower quadrant with rebound tenderness noted. Labs reviewed: CBC was essentially normal. Chemistry was essentially normal as well except for a minimally ill elevated AG. CRP normal. 1900 spoke with the read. CT abdomen and pelvis impression: Mild colonic wall thickening noted throughout the ascending transverse and descending colon without surrounding inflammatory changes. Findings are most likely consistent with mild colitis. 05/13/18 19:26 Labs reviewed: CBC was essentially normal. Chemistry was essentially normal as well except for a minimally ill elevated AG. CRP normal. 1899 spoke with the [facility]. CT abdomen and pelvis impression: Mild colonic wall thickening noted throughout the ascending transverse and descending colon without surrounding inflammatory changes. Findings are most likely consistent with mild colitis. 1914 discuss results of labs and CT study with the patient. Again she denies any history of C. difficile, ingestion of bad or questionable food, recent antibiotic use, history of ulcerative colitis/ Crohn's disease, and/or family history of ulcerative colitis/Crohn's disease. She has had diarrhea for the past 2 days. Minimal diarrhea today. I have ordered stool studies if patient is able to provide a sample. 1923 Ordered additional pain medications. Departure - Departure Time of Disposition: 19:29 Disposition: Home, Self-Care 01 Condition: Good Clinical Impression: Colitis, Diarrhea Nausea & vomiting Qualifiers: Vomiting type: unspecified Vomiting Intractability: non-intractable Qualified Code(s): R11.2 - Nausea with vomiting, unspecified - Discharge Information Prescriptions: Acetaminophen/HYDROcodone [[place] 325-5 MG] 1 tab PO Q6H PRN #15 tablet PRN Reason: Pain (Severe 7-10) metroNIDAZOLE [Flagyl] 500 mg PO Q8H #30 tab Ondansetron [Zofran ODT] 1 tab PO Q8H PRN #15 tab.dis PRN Reason: Nausea/Vomiting Instructions: Nausea, Adult, Diarrhea, Adult, Colitis Referrals: Mariza De Jesus NP [Primary Care Provider] - 05/17/18 Forms: ED Department Discharge, ED Return to Work/School Form Additional Instructions: Take the full course of Flagyl as prescribed. Take [id number] probiotic as well. Take Zofran 1 tablet 6 hours as needed for nausea and vomiting. For severe pain take [place] one tab every [address] this evening and/or while taking the [place]. Stick with a clear liquid diet for the next 48 hours. Advance to a low residue diet thereafter. Please see your PCP this coming Thursday for reevaluation. Return back to the ED if you develop any new or worsening symptoms. - My Orders Last 24 Hours: My Active Orders 05/13/18 17:16 Abdomen Pelvis w Cont [CT] Stat 05/13/18 17:17 Peripheral IV Care [RC] . DIRECTED Peripheral IV Insertion Adult [OM.PC] Routine 05/13/18 17:43 UA W/MICROSCOPIC [URIN] Stat 05/13/18 19:21 C DIFFICILE BY PCR W/NAP1 [MOLEC] Stat CULTURE STOOL + SHIGATOX [RM] Stat WBC, STOOL [OP] Stat - Assessment/Plan Last 24 Hours: My Active Orders 05/13/18 17:16 Abdomen Pelvis w Cont [CT] Stat 05/13/18 17:17 Peripheral IV Care [RC] . DIRECTED Peripheral IV Insertion Adult [OM.PC] Routine 05/13/18 17:43 UA W/MICROSCOPIC [URIN] Stat 05/13/18 19:21 C DIFFICILE BY PCR W/NAP1 [MOLEC] Stat CULTURE STOOL + SHIGATOX [RM] Stat WBC, STOOL [OP] Stat
[2018-05-13] MEDS: Sodium Chloride 0.9% 10 ML Syringe FLUSH PRN ×2 (17:47→18:36)
[2018-05-13] MEDS ORDERED: Diatrizoate Meglumine/Diatrizoate Sodium 37% 120 ML Bottle PO ONE (18:18)
[2018-05-13] MEDS ORDERED: Iopamidol 612 MG/ML 150 ML Bottle IVPUSH ONE (18:18)
[2018-05-13] MEDS ORDERED: metroNIDAZOLE/Normal Saline 500 MG in Premix Bag 1 BAG IV ONE (19:21)
[2018-05-13] MEDS ORDERED: metroNIDAZOLE 500 MG Tab PO ONE (19:21)
--- NOTE | 2018-05-14 09:48 | CT ---
CT abdomen and pelvis Technique: Multiple axial sections were obtained from above the dome of the diaphragm inferiorly through the pubic symphysis. Intravenous and oral contrast was utilized. Comparison: Prior CT abdomen and pelvis exam of 08/12/17. Findings: Visualized lung bases are clear. Liver shows no focal parenchymal abnormality. Spleen appears within normal limits. Adrenal glands show no nodule. Pancreas appears within normal limits. Kidneys show symmetric contrast enhancement without hydronephrosis or mass. Aorta shows no aneurysmal dilatation. No retroperitoneal adenopathy or mesenteric abnormalities are seen. Mild colonic wall thickening appears to be present within the ascending and transverse colon. No significant surrounding inflammatory change is seen. Mild colitis is a possibility. Terminal ileum appears normal. Appendix appears within normal limits. Previous hysterectomy is seen. No pelvic mass or adenopathy is identified. Delayed images show contrast within the bladder. Bone window settings appear within normal limits for the patient's age. Impression: 1. Mild findings suggest the possibility of mild colitis. 2. No additional abnormality is appreciated. Diagnostic code #3 I agree with preliminary report issued by [employer] ([facility] report finalized on 05/13/18, 8:05 PM Central Time)
== END 2018-05-13 20:53 | disposition home or self-care (01) ==
LOC: JD.ED 16:35
DX: K52.9 Noninfective gastroenteritis and colitis, unspecified (principal); Z88.0 Allergy status to penicillin; Z79.899 Other long term (current) drug therapy
CPT/HCPCS: 36415; 74177; 80053; 85007; 85027; 86140; 96361; 96365; 96375; 96376; 99284; A9270; J1170; J2405; J3490; J7040; J7050; Q9963; Q9967

== ENCOUNTER 2018-05-14 14:52 | Inpatient (IN) | payer BC ==
[2018-05-14] MEDS ORDERED: Sodium Chloride 0.9% 1,000 ML IV ONE (16:56)
[2018-05-14] MEDS ORDERED: Ondansetron 4 MG/2 ML SDV IVPUSH ONE (16:56)
[2018-05-14] MEDS ORDERED: HYDROmorphone 0.5 MG/0.5 ML SYRINGE IVPUSH STA (17:01)
--- NOTE | 2018-05-14 17:04 | EDM.PDOC ---
ED HPI GENERAL MEDICAL PROBLEM - General Chief Complaint: Abdominal Pain Stated Complaint: ABDOMINAL PAIN Time Seen by Provider: 05/14/18 15:21 Source of Information: Reports: Patient History Limitations: Reports: No Limitations - History of Present Illness INITIAL COMMENTS - FREE TEXT/NARRATIVE: Medical records indicate that the patient, who has a history of chronic abdominal pain, was seen in this ED yesterday, 05/13/2018, for abdominal pain for the past 3 days. Workup included a CBC, CMP, CRP, and a CT scan of the abdomen and pelvis, which found mild thickening of the colon, consistent with mild or early colitis. She was discharged home with prescriptions for Alpine #15 , Flagyl #30, and Zofran #15. She was instructed to take a clear liquid diet for about 3 days, before advancing her diet The patient now returns to the ED with the same complaint as yesterday. She states that she is able to keep down the antibiotics and Zofran, however, within minutes of trying to drink anything, she has severe increased pain. She reports frequent watery diarrhea. No urinary symptoms. No recent fever. The patient states that her chronic abdominal pain significantly improved after she had a bilateral oophorectomy 08/11/2017, but that it is now back. The patient's PCP is Mariza De Jesus. Abdomen Pain Score (Numeric/FACES): 8 - Related Data Allergies Allergy/AdvReac Type Severity Reaction Status Date / Time Penicillins Allergy Hives Verified 05/14/18 15:05 Home Meds: Home Meds Dicyclomine [Bentyl] 20 mg PO Q6H PRN #20 tablet 01/07/18 [Rx] Acetaminophen/HYDROcodone [[place] 325-5 MG] 1 tab PO Q6H PRN #15 tablet 05/13/18 [Rx] Ondansetron [Zofran ODT] 1 tab PO Q8H PRN #15 tab.dis 05/13/18 [Rx] metroNIDAZOLE [Flagyl] 500 mg PO Q8H #30 tab 05/13/18 [Rx] Past Medical History HEENT History: Reports: Impaired Vision Gastrointestinal History: Reports: Other (See Below) (Chronic abdominal pain of undetermined etiology) 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, Musculoskeletal History: Reports: Fracture (left wrist) Endocrine/Metabolic History: Reports: Other (See Below) (Hirsutism) - Infectious Disease History Infectious Disease History: Reports: Chicken Pox - Past Surgical History HEENT Surgical History: Reports: Naso-Sinus Surgery (septoplasty), Oral Surgery (wisdom teeth extraction), Tonsillectomy GI Surgical History: Reports: Cholecystectomy (2016), Colonoscopy, EGD Female Surgical History: Reports: Hysterectomy (2016), Oophorectomy (2016), Tubal Ligation Social & Family History - Family History Family Medical History: Noncontributory - Tobacco Use Smoking Status *Q: Never Smoker - Caffeine Use Caffeine Use: Reports: None Caffeine Use Comment: 1-2 times per week, occ coffee - Alcohol Use Alcohol Use History: Yes Alcohol Use Frequency: Rarely - Recreational Drug Use Recreational Drug Use: No - Living Situation & Occupation Living situation: Reports: , with Spouse, with Family (4 kids) Occupation: Unemployed ED ROS GENERAL - Review of Systems Review Of Systems: ROS reveals no pertinent complaints other than HPI. ED EXAM, GI/ABD - Physical Exam Exam: See Below Exam Limited By: No Limitations General Appearance: Alert, WD/WN, No Apparent Distress Eyes: Bilateral: Normal Appearance, EOMI Ears: Normal External Exam, Hearing Grossly Normal Nose: Normal Inspection, No Blood Throat/Mouth: Normal Inspection, Normal Lips, Normal Voice, No Airway Compromise Head: Atraumatic, Normocephalic Neck: Normal Inspection, Full Range of Motion Respiratory/Chest: No Respiratory Distress, Lungs Clear, Normal Breath Sounds, No Accessory Muscle Use Cardiovascular: Normal Peripheral Pulses, Regular Rate, Rhythm, No Gallop, No JVD, No Murmur, No Rub GI/Abdominal Exam: Normal Bowel Sounds, Soft, No Organomegaly, No Distention, No Abnormal Bruit, No Mass, Pelvis Stable, Tender (lower abdomen) (Female) Exam: Deferred Rectal (Female) Exam: Deferred Back Exam: Normal Inspection, Full Range of Motion, CVA Tenderness (L) (mild), CVA Tenderness (R) (mild, Rt > Lt) Extremities: Normal Inspection, Normal Range of Motion, No Pedal Edema, Normal Capillary Refill Neurological: Alert, Oriented, Normal Cognition, No Motor/Sensory Deficits Psychiatric: Flat Affect Skin Exam: Warm, Dry, Intact, Normal Color, No Rash Course - Vital Signs Last Recorded V/S: Last Vital Signs Temp 37.0 C 05/14/18 15:03 Pulse 106 H 05/14/18 15:03 Resp 16 05/14/18 15:03 BP 116/69 05/14/18 15:03 Pulse Ox 97 05/14/18 15:03 Orthostatic Blood Pressure [ 102/71 Standing] Orthostatic Blood Pressure [ 109/73 Sitting] Orthostatic Blood Pressure [ 112/75 Supine] - Orders/Labs/Meds Orders: Active Orders 24 hr Category Date Time Status Orthostatic Vital Signs [RC] STAT Care 05/14/18 16:24 Active CULTURE STOOL + SHIGATOX [RM] Stat Lab 05/14/18 17:04 Ordered NOROVIRUS, RT-PCR Stat Lab 05/14/18 17:04 Received ROTAVIRUS DIRECT ANTIGEN STOOL [OP] Stat Lab 05/14/18 17:04 COMP WBC, STOOL [OP] Stat Lab 05/14/18 17:04 COMP Medication Orders Ketorolac Tromethamine (Toradol) 15 mg IVPUSH Q6H PRN PRN Reason: Pain Last Admin: 05/14/18 19:52 Dose: 15 mg Ondansetron HCl (Zofran) 4 mg IVPUSH Q8H PRN PRN Reason: Nausea/Vomiting Last Admin: 05/14/18 19:53 Dose: 4 mg Labs: Laboratory Tests 05/14/18 05/14/18 05/14/18 Range/Units 17:04 17:10 17:10 WBC 10.22 H (3.98-10.04) K/mm3 RBC 5.36 H (3.98-5.22) M/mm3 Hgb 14.7 (11.2-15.7) gm/L Hct 42.8 (34.1-44.9) % MCV 79.9 (79.4-94.8) fl MCH 27.4 (25.6-32.2) pg MCHC 34.3 (32.2-35.5) g/dl RDW Std Deviation 39.4 (36.4-46.3) fL Plt Count 314 (182-369) K/mm3 MPV 9.2 L (9.4-12.3) fl Neutrophils % (Manual) 58 (40-60) % Band Neutrophils % 1 (0-10) % Lymphocytes % (Manual) 36 (20-40) % Atypical Lymphs % 0 % Monocytes % (Manual) 4 (2-10) % Eosinophils % (Manual) 0 L (0.7-5.8) % Basophils % (Manual) 1 (0.1-1.2) Platelet Estimate Adequate RBC Morph Comment Normal Sodium 141 (136-145) mEq/L Potassium 3.5 (3.5-5.1) mEq/L Chloride 106 (98-107) mEq/L Carbon Dioxide 24 (21-32) mEq/L Anion Gap 14.5 (5-15) BUN 12 (7-18) mg/dL Creatinine 0.8 (0.55-1.02) mg/dL Est Cr Clr Drug Dosing 82.35 mL/min Estimated GFR (MDRD) > 60 (>60) mL/min BUN/Creatinine Ratio 15.0 (14-18) Glucose 84 (74-106) mg/dL Calcium 9.0 (8.5-10.1) mg/dL Magnesium 2.2 (1.8-2.4) mg/dl Total Bilirubin 0.5 (0.2-1.0) mg/dL AST 23 (15-37) U/L ALT 34 (14-59) U/L Alkaline Phosphatase 91 (46-116) U/L Total Protein 7.8 (6.4-8.2) g/dl Albumin 3.9 (3.4-5.0) g/dl Globulin 3.9 gm/dL Albumin/Globulin Ratio 1.0 (1-2) Lipase 276 (73-393) U/L C.difficile [id number] Presumptive negative C. difficile Tox (PCR) Negative Meds: Medications Generic Name Dose Route Start Last Admin Trade Name Freq PRN Reason Stop Dose Admin Ketorolac Tromethamine 15 mg 05/14/18 19:45 05/14/18 19:52 Toradol IVPUSH 15 mg Q6H PRN Administration Pain Ondansetron HCl 4 mg 05/14/18 19:45 05/14/18 19:53 Zofran IVPUSH 4 mg Q8H PRN Administration Nausea/Vomiting Discontinued Medications Generic Name Dose Route Start Last Admin Trade Name Freq PRN Reason Stop Dose Admin Hydromorphone HCl 0.5 mg 05/14/18 17:01 05/14/18 17:23 Dilaudid IVPUSH 05/14/18 17:02 0.5 mg ONETIME STA Administration Sodium Chloride 1,000 mls @ 999 mls/hr 05/14/18 16:56 05/14/18 17:20 Normal Saline IV 05/14/18 17:56 999 mls/hr ONETIME ONE Administration Ondansetron HCl 4 mg 05/14/18 16:56 05/14/18 17:21 Zofran IVPUSH 05/14/18 16:57 4 mg ONETIME ONE Administration - Re-Assessments/Exams Free Text/Narrative Re-Assessment/Exam: 05/14/18 17:04 The patient is orthostatic. IV fluid has been ordered. 05/14/18 18:06 Today's blood work is remarkable only for a WBC count mildly elevated at 10.22, with 1% bandemia. Stool studies are still pending. Case discussed with Dr. Delgado at 18:04. She agrees to admit the patient. Departure - Departure Time of Disposition: 18:09 Disposition: Admitted As Inpatient 67 Condition: Fair Clinical Impression: Abdominal pain, lower, Orthostasis - Discharge Information *PRESCRIPTION DRUG MONITORING PROGRAM REVIEWED*: Not Applicable *COPY OF PRESCRIPTION DRUG MONITORING REPORT IN PATIENT ANTWAN: Not Applicable - My Orders Last 24 Hours: My Active Orders 05/14/18 16:24 Orthostatic Vital Signs [RC] STAT 05/14/18 17:04 CULTURE STOOL + SHIGATOX [RM] Stat NOROVIRUS, RT-PCR Stat ROTAVIRUS DIRECT ANTIGEN STOOL [OP] Stat WBC, STOOL [OP] Stat - Assessment/Plan Last 24 Hours: My Active Orders 05/14/18 16:24 Orthostatic Vital Signs [RC] STAT 05/14/18 17:04 CULTURE STOOL + SHIGATOX [RM] Stat NOROVIRUS, RT-PCR Stat ROTAVIRUS DIRECT ANTIGEN STOOL [OP] Stat WBC, STOOL [OP] Stat
[2018-05-14] MEDS ORDERED: Ondansetron 4 MG/2 ML SDV IVPUSH PRN (19:45)
[2018-05-14] MEDS: Ketorolac 15 MG/ML SDV IVPUSH PRN (19:52)
[2018-05-14] MEDS ORDERED: Dicyclomine 10 MG Cap PO PRN (20:25)
[2018-05-14] MEDS ORDERED: Ondansetron 4 MG Tab.DIS PO PRN (20:31)
[2018-05-14] MEDS ORDERED: Temazepam 7.5 MG Cap PO PRN (20:31)
[2018-05-14] MEDS ORDERED: Acetaminophen 325 MG Tab PO PRN (20:31)
[2018-05-14] MEDS: Sodium Chloride 0.9% 1,000 ML IV SCH (20:33)
[2018-05-14] MEDS: HYDROmorphone 0.5 MG/0.5 ML SYRINGE IVPUSH PRN (20:34)
[2018-05-14] MEDS ORDERED: Promethazine 6.25 MG in Sodium Chloride 0.9% 50 ML IV SCH (20:45)
--- NOTE | 2018-05-14 21:44 | PCM.HP ---
H&P History of Present Illness - General Date of Service: 05/14/18 Admit Problem/Dx: Admission Diagnosis/Problem Admission Diagnosis/Problem Lower abdominal pain Source of Information: Patient, Family, Old Records, Provider History Limitations: Reports: No Limitations - History of Present Illness Initial Comments - Free Text/Narative: HPI: This is a 27 yo female with past medical hx/o chronic abdominal pain (started 2010), PCOS s/p oophorectomy (08/11/17), h/o Prolapsed Uterus stage 3 s/p hysterectomy (2015), h/o Cholecystectomy, who comes in for lower abdominal pain. She came in to the ED for similar symptoms yesterday and was diagnosed with mild colitis via CT scan. She was sent home with [place], Flagyl and Zofran but is having severe abdominal pain when she tries to drink. She is also having nausea and frequent watery diarrhea. No F/C, no genitourinary symptoms. Per pt she has had a colonoscopy in the past and it was unremarkable. Her symptoms slightly improved after receiving Zofran, Dilaudid and IVF in the ED. Her initial workup in the ED showed a CBC remarkable for WBC slightly elevated at 10.22, RBC 5.36, MPV 9.2, Bands 1%, Eosinophils 0%. Her chemistry is unremarkable. Lipase normal at 276. She is subsequently admitted to the medical floor. She is a Full Code. His PCP is Mariza De Jesus. Abdomen Pain Score (Numeric/FACES): 8 - Related Data Allergies/Adverse Reactions: Allergies Allergy/AdvReac Type Severity Reaction Status Date / Time Penicillins Allergy Hives Verified 05/14/18 15:05 Home Medications: Home Meds Dicyclomine [Bentyl] 20 mg PO Q6H PRN #20 tablet 01/07/18 [Rx] Acetaminophen/HYDROcodone [[place] 325-5 MG] 1 tab PO Q6H PRN #15 tablet 05/13/18 [Rx] Ondansetron [Zofran ODT] 1 tab PO Q8H PRN #15 tab.dis 05/13/18 [Rx] metroNIDAZOLE [Flagyl] 500 mg PO Q8H #30 tab 05/13/18 [Rx] Past Medical History - Past Health History Medical/Surgical History: Denies Medical/Surgical History HEENT History: Reports: Impaired Vision Other HEENT History: sinus surgery Cardiovascular History: Reports: None Respiratory History: Reports: None Gastrointestinal History: Reports: Other (See Below) Other Gastrointestinal History: chronic abdominal pains, Genitourinary History: Reports: UTI, Recurrent DISTILLER History: Reports: Polycystic Ovaries, Other OB/BYN History: Ovarian Cysts, Laparoscopy Musculoskeletal History: Reports: Fracture Neurological History: Reports: Migraines Psychiatric History: Reports: None Endocrine/Metabolic History: Reports: Other (See Below) (Hirsutism) Other Endocrine/Metabolic History: hair growth, hirsutism Hematologic History: Reports: None Immunologic History: Reports: None Oncologic (Cancer) History: Reports: None Dermatologic History: Reports: Other (See Below) Other Dermatologic History: acne, foreign body in hand - Infectious Disease History Infectious Disease History: Reports: Chicken Pox - Past Surgical History Head Surgeries/Procedures: Reports: None HEENT Surgical History: Reports: Naso-Sinus Surgery, Oral Surgery, Tonsillectomy Cardiovascular Surgical History: Reports: None GI Surgical History: Reports: Cholecystectomy, Colonoscopy, EGD Female Surgical History: Reports: Hysterectomy, Oophorectomy, Tubal Ligation Neurological Surgical History: Reports: None Oncologic Surgical History: Reports: None Social & Family History - Family History Family Medical History: Noncontributory - Tobacco Use Smoking Status *Q: Never Smoker Second Hand Smoke Exposure: No - Caffeine Use Caffeine Use: Reports: Coffee Caffeine Use Comment: 1-2 times per week, occ coffee - Recreational Drug Use Recreational Drug Use: No - Living Situation & Occupation Living situation: Reports: , with Spouse, with Family (4 kids) Occupation: Unemployed H&P Review of Systems - Review of Systems: Review Of Systems: See Below General: Reports: No Symptoms. Denies: Fever, Chills HEENT: Reports: No Symptoms Pulmonary: Reports: No Symptoms Cardiovascular: Reports: No Symptoms Gastrointestinal: Reports: Abdominal Pain (lower quadrants), Diarrhea (watery), Nausea. Denies: Bloody Stool, Constipation, Vomiting Genitourinary: Reports: No Symptoms. Denies: Discharge Musculoskeletal: Reports: No Symptoms Skin: Reports: No Symptoms Psychiatric: Reports: No Symptoms Neurological: Reports: Numbness (right hand, chronic), Tingling (right hand, chronic). Denies: Dizziness, Headache, Weakness Hematologic/Lymphatic: Reports: No Symptoms Immunologic: Reports: No Symptoms Exam - Exam Exam: See Below - Vital Signs Vital Signs: Last Vital Signs Temp 98.6 F 05/14/18 15:03 Pulse 106 H 05/14/18 15:03 Resp 16 05/14/18 15:03 BP 116/69 05/14/18 15:03 Pulse Ox 97 05/14/18 15:03 Orthostatic Blood Pressure [ 102/71 Standing] Orthostatic Blood Pressure [ 109/73 Sitting] Orthostatic Blood Pressure [ 112/75 Supine] Weight: 125 lb 4.8 oz - Exam Quality Assessment: DVT Prophylaxis General: Alert, Oriented, Cooperative, Moderate Distress HEENT: PERRLA, Hearing Intact, Mucosa Moist & [place], Nares Patent, Normal Nasal Septum, Posterior Pharynx Clear, Conjunctiva Clear, EOMI, EACs Clear, TMs Clear Neck: Supple, Trachea Midline, 2 Lungs: Clear to Auscultation, Normal Respiratory Effort Cardiovascular: Regular Rate, Regular Rhythm GI/Abdominal Exam: Soft, Non-Tender, No Organomegaly, No Distention, No Abnormal Bruit, No Mass, Pelvis Stable, Abnormal Bowel Sounds (hyperactive) (Female) Exam: Deferred Rectal (Female) Exam: Deferred Back Exam: Normal Inspection, Full Range of Motion, NT Extremities: Normal Inspection, Normal Range of Motion, Non-Tender, No Pedal Edema, Normal Capillary Refill, Other (right hand "clicks" with movement) Peripheral Pulses: 4+: Posterior Tibial (L), Posterior Tibial (R), Dorsalis Pedis (L), Dorsalis Pedis (R) Skin: Warm, Dry, Intact Neurological: Cranial Nerves Intact (grossly), Sensation Intact (right hand slightly diminished) Neuro Extensive - Mental Status: Alert, Oriented x3, Normal Mood/Affect, Normal Cognition Psychiatric: Alert, Normal Affect, Normal Mood - Patient Data Lab Results Last 24 hrs: Laboratory Results - last 24 hr 05/14/18 05/14/18 05/14/18 Range/Units 17:04 17:10 17:10 WBC 10.22 H (3.98-10.04) K/mm3 RBC 5.36 H (3.98-5.22) M/mm3 Hgb 14.7 (11.2-15.7) gm/L Hct 42.8 (34.1-44.9) % MCV 79.9 (79.4-94.8) fl MCH 27.4 (25.6-32.2) pg MCHC 34.3 (32.2-35.5) g/dl RDW Std Deviation 39.4 (36.4-46.3) fL Plt Count 314 (182-369) K/mm3 MPV 9.2 L (9.4-12.3) fl Neutrophils % (Manual) 58 (40-60) % Band Neutrophils % 1 (0-10) % Lymphocytes % (Manual) 36 (20-40) % Atypical Lymphs % 0 % Monocytes % (Manual) 4 (2-10) % Eosinophils % (Manual) 0 L (0.7-5.8) % Basophils % (Manual) 1 (0.1-1.2) Platelet Estimate Adequate RBC Morph Comment Normal ESR (0-20) mm/hr Sodium 141 (136-145) mEq/L Potassium 3.5 (3.5-5.1) mEq/L Chloride 106 (98-107) mEq/L Carbon Dioxide 24 (21-32) mEq/L Anion Gap 14.5 (5-15) BUN 12 (7-18) mg/dL Creatinine 0.8 (0.55-1.02) mg/dL Est Cr Clr Drug Dosing 82.35 mL/min Estimated GFR (MDRD) > 60 (>60) mL/min BUN/Creatinine Ratio 15.0 (14-18) Glucose 84 (74-106) mg/dL Calcium 9.0 (8.5-10.1) mg/dL Magnesium 2.2 (1.8-2.4) mg/dl Total Bilirubin 0.5 (0.2-1.0) mg/dL AST 23 (15-37) U/L ALT 34 (14-59) U/L Alkaline Phosphatase 91 (46-116) U/L C-Reactive Protein (<1.0) mg/dL Total Protein 7.8 (6.4-8.2) g/dl Albumin 3.9 (3.4-5.0) g/dl Globulin 3.9 gm/dL Albumin/Globulin Ratio 1.0 (1-2) Lipase 276 (73-393) U/L C.difficile [id number] Presumptive negative C. difficile Tox (PCR) Negative 05/14/18 05/14/18 Range/Units 17:10 17:10 WBC (3.98-10.04) K/mm3 RBC (3.98-5.22) M/mm3 Hgb (11.2-15.7) gm/L Hct (34.1-44.9) % MCV (79.4-94.8) fl MCH (25.6-32.2) pg MCHC (32.2-35.5) g/dl RDW Std Deviation (36.4-46.3) fL Plt Count (182-369) K/mm3 MPV (9.4-12.3) fl Neutrophils % (Manual) (40-60) % Band Neutrophils % (0-10) % Lymphocytes % (Manual) (20-40) % Atypical Lymphs % % Monocytes % (Manual) (2-10) % Eosinophils % (Manual) (0.7-5.8) % Basophils % (Manual) (0.1-1.2) Platelet Estimate RBC Morph Comment ESR 14 (0-20) mm/hr Sodium (136-145) mEq/L Potassium (3.5-5.1) mEq/L Chloride (98-107) mEq/L Carbon Dioxide (21-32) mEq/L Anion Gap (5-15) BUN (7-18) mg/dL Creatinine (0.55-1.02) mg/dL Est Cr Clr Drug Dosing mL/min Estimated GFR (MDRD) (>60) mL/min BUN/Creatinine Ratio (14-18) Glucose (74-106) mg/dL Calcium (8.5-10.1) mg/dL Magnesium (1.8-2.4) mg/dl Total Bilirubin (0.2-1.0) mg/dL AST (15-37) U/L ALT (14-59) U/L Alkaline Phosphatase (46-116) U/L C-Reactive Protein 0.2 (<1.0) mg/dL Total Protein (6.4-8.2) g/dl Albumin (3.4-5.0) g/dl Globulin gm/dL Albumin/Globulin Ratio (1-2) Lipase (73-393) U/L C.difficile [id number] C. difficile Tox (PCR) Result Diagrams: 05/14/18 17:10 05/14/18 17:10 Geraldo Results Last 24 hrs: Microbiology 05/14/18 17:04 Stool for WBCs - Final Stool / Feces NO WBC SEEN Rotavirus Antigen - Final NEGATIVE ROTAVIRUS ANTIGEN - Problem List (1) Nausea SNOMED Code(s): 857764017 ICD Code: R11.0 - NAUSEA Status: Acute Priority: High Current Visit: Yes (2) Abdominal pain, lower SNOMED Code(s): 22736871 ICD Code: R10.30 - LOWER ABDOMINAL PAIN, UNSPECIFIED Status: Acute Priority: High Current Visit: Yes (3) Colitis SNOMED Code(s): 80292352 ICD Code: K52.9 - NONINFECTIVE GASTROENTERITIS AND COLITIS, UNSPECIFIED Status: Acute Priority: High Current Visit: Yes (4) Diarrhea SNOMED Code(s): 47546367 ICD Code: R19.7 - DIARRHEA, UNSPECIFIED Status: Acute Priority: High Current Visit: Yes Problem List Initiated/Reviewed/Updated: Yes Orders Last 24hrs: Active Orders 24 hr Category Date Time Status Admission Status [Patient Status] [ADT] Routine ADT 05/14/18 19:07 Active Cardiac Monitoring [RC] INTERMITTENT Care 05/14/18 20:32 Active Height and Weight [RC] DAILY Care 05/14/18 20:31 Active Intake and Output [RC] QSHIFT Care 05/14/18 20:32 Active May Shower [RC] ASDIRECTED Care 05/14/18 20:31 Active Orthostatic Vital Signs [RC] STAT Care 05/14/18 16:24 Active Oxygen Therapy [RC] PRN Care 05/14/18 20:31 Active Pulse Oximetry [RC] PRN Care 05/14/18 20:32 Active Up ad Tata [RC] ASDIRECTED Care 05/14/18 20:31 Active VTE/DVT Education [RC] PER UNIT ROUTINE Care 05/14/18 20:31 Active Vital Signs [RC] Q4H Care 05/14/18 20:31 Active Consult to Finance Insurance Manager [CONS] Routine Cons 05/14/18 20:31 Active Nothing per Oral Now Diet [DIET] Diet 05/14/18 Dinner Active BASIC METABOLIC PANEL,BMP [CHEM] AM Lab 05/15/18 05:11 Ordered BASIC METABOLIC PANEL,BMP [CHEM] AM Lab 05/16/18 05:11 Ordered BASIC METABOLIC PANEL,BMP [CHEM] AM Lab 05/17/18 05:11 Ordered BASIC METABOLIC PANEL,BMP [CHEM] AM Lab 05/18/18 05:11 Ordered BASIC METABOLIC PANEL,BMP [CHEM] AM Lab 05/19/18 05:11 Ordered C-REACTIVE PROTEIN [CHEM] AM Lab 05/15/18 05:11 Ordered C-REACTIVE PROTEIN [CHEM] AM Lab 05/16/18 05:11 Ordered C-REACTIVE PROTEIN [CHEM] AM Lab 05/17/18 05:11 Ordered C-REACTIVE PROTEIN [CHEM] AM Lab 05/18/18 05:11 Ordered C-REACTIVE PROTEIN [CHEM] AM Lab 05/19/18 05:11 Ordered CBC WITH AUTO DIFF [HEME] AM Lab 05/15/18 05:11 Ordered CBC WITH AUTO DIFF [HEME] AM Lab 05/16/18 05:11 Ordered CBC WITH AUTO DIFF [HEME] AM Lab 05/17/18 05:11 Ordered CBC WITH AUTO DIFF [HEME] AM Lab 05/18/18 05:11 Ordered CBC WITH AUTO DIFF [HEME] AM Lab 05/19/18 05:11 Ordered CULTURE STOOL + SHIGATOX [RM] Stat Lab 05/14/18 17:04 Ordered CULTURE URINE [RM] Routine Lab 05/14/18 20:18 Ordered MAGNESIUM [CHEM] AM Lab 05/15/18 05:11 Ordered MAGNESIUM [CHEM] AM Lab 05/16/18 05:11 Ordered MAGNESIUM [CHEM] AM Lab 05/17/18 05:11 Ordered MAGNESIUM [CHEM] AM Lab 05/18/18 05:11 Ordered MAGNESIUM [CHEM] AM Lab 05/19/18 05:11 Ordered NOROVIRUS, RT-PCR Stat Lab 05/14/18 17:04 Received ROTAVIRUS DIRECT ANTIGEN STOOL [OP] Stat Lab 05/14/18 17:04 COMP UA W/MICROSCOPIC [URIN] Stat Lab 05/14/18 20:18 Ordered WBC, STOOL [OP] Stat Lab 05/14/18 17:04 COMP Acetaminophen [Tylenol] Med 05/14/18 20:31 Active 650 mg PO Q4H PRN Acetaminophen/HYDROcodone [[place] 325-5 MG] Med 05/14/18 20:31 Active 1 tab PO Q4H PRN Cholestyramine/Aspartame [Prevalite Packet] Med 05/15/18 09:00 Active 4 gm PO DAILY Dicyclomine [Bentyl] Med 05/14/18 20:25 Active 20 mg PO Q6H PRN Famotidine [Pepcid] Med 05/15/18 09:00 Ordered 20 mg IVPUSH BID HYDROmorphone [Dilaudid] Med 05/14/18 20:22 Active 0.5 mg IVPUSH Q4HR PRN Ketorolac [Toradol] Med 05/14/18 19:45 Active 15 mg IVPUSH Q6H PRN Ondansetron [Zofran ODT] Med 05/14/18 20:31 Active 4 mg PO Q4H PRN Ondansetron [Zofran] Med 05/14/18 19:45 Active 4 mg IVPUSH Q8H PRN Promethazine [Phenergan] 6.25 mg Med 05/14/18 20:45 Active Sodium Chloride 0.9% [Normal Saline] 50 ml IV Q6H Saccharomyces Boulardii [Florastor] Med 05/14/18 21:00 Active 250 mg PO BID Sodium Chloride 0.9% [Normal Saline] 1,000 ml Med 05/14/18 20:30 Active IV ASDIRECTED Temazepam [Restoril] Med 05/14/18 20:31 Active 7.5 mg PO BEDTIME PRN metroNIDAZOLE [Flagyl] Med 05/16/18 09:00 Active 500 mg PO TID metroNIDAZOLE/Normal Saline [Flagyl 500 MG in NS 100 ML Med 05/14/18 20:30 Ordered ] 500 mg Premix Bag 1 bag IV Q8H Antiembolic Hose [OM.PC] Per Unit Routine Oth 05/14/18 20:33 Ordered Resuscitation Status Routine Resus Stat 05/14/18 20:31 Ordered Medication Orders Acetaminophen (Tylenol) 650 mg PO Q4H PRN PRN Reason: Pain (Mild 1-3)/fever Hydrocodone Bitart/Acetaminophen ([place] 325-5 Mg) 1 tab PO Q4H PRN PRN Reason: Pain (moderate 4-6) Cholestyramine Resin (Prevalite Packet) 4 gm PO DAILY LUIS ANTONIO Dicyclomine HCl (Bentyl) 20 mg PO Q6H PRN PRN Reason: Cramping Famotidine (Pepcid) 20 mg IVPUSH BID LUIS ANTONIO Hydromorphone HCl (Dilaudid) 0.5 mg IVPUSH Q4HR PRN PRN Reason: Pain Last Admin: 05/14/18 20:34 Dose: 0.5 mg Metronidazole 500 mg/ Premix 100 mls @ 100 mls/hr IV Q8H LUIS ANTONIO Stop: 05/15/18 20:31 Sodium Chloride (Normal Saline) 1,000 mls @ 125 mls/hr IV ASDIRECTED LUIS ANTONIO Last Admin: 05/14/18 20:33 Dose: 125 mls/hr Promethazine HCl 6.25 mg/ (Sodium Chloride) 50.25 mls @ 100 mls/hr IV Q6H LUIS ANTONIO Ketorolac Tromethamine (Toradol) 15 mg IVPUSH Q6H PRN PRN Reason: Pain Last Admin: 05/14/18 19:52 Dose: 15 mg Metronidazole (Flagyl) 500 mg PO TID LUIS ANTONIO Ondansetron HCl (Zofran) 4 mg IVPUSH Q8H PRN PRN Reason: Nausea/Vomiting Last Admin: 05/14/18 19:53 Dose: 4 mg Ondansetron HCl (Zofran Odt) 4 mg PO Q4H PRN PRN Reason: nausea, able to take PO Saccharomyces Boulardii (Florastor) 250 mg PO BID LUIS ANTONIO Temazepam (Restoril) 7.5 mg PO BEDTIME PRN PRN Reason: Sleep Assessment/Plan Comment:: I/P: Acute: Colitis, failed outpt therapy * Lower abdominal pain x 4 days, nausea, watery diarrhea * Was diagnosed with this yesterday in the ED * Was sent home with [place], Flagyl and Zofran --> severe increased pain with drinking * No recent change in eating habits, sick exposure, or h/o cdiff (abx started yesterday) * Electrolytes WNL * ESR normal at 14 * Infectious workup: * No F/C, WBC 10.22, CRP 0.2 * Stool Cultures--> no WBCs * Cdiff--> negative * Rotavirus --> negative * Lipase--> 276 * Norovirus--> pending * U/A--> pending * CT ab/pelvis 05/13/18: mild thickening of the colon, consistent with mild or early colitis * Continue Flagyl IV 24H, then switch to PO if tolerated * Florastor and Questran PRN diarrhea * Pain medications PRN * Previously had Colonoscopy with no findings per pt * Recommend F/U with GI specialist Nausea * 2/2 above * Antiemetics PRN * NPO except medications and ice chips * IVF started in ED--> continue Chronic: Chronic abdominal pain (started 2010) PCOS s/p oophorectomy (08/11/17) h/o Prolapsed Uterus stage 3 s/p hysterectomy (2015) h/o Cholecystectomy Family History: Rheumatoid Arthritis (Paternal) Colon CA (Maternal Great Grandmother and Grandmother) Plan: Admit to medical floor Home meds as ordered Correct electrolyte abnormalities PRN Routine AM labs Other orders as above DVT Prophylaxis: LORENZO arguello GI Prophylaxis: Pepcid Code Status: Full Code; PCP: Mariza De Jesus
[2018-05-14] MEDS: Acetaminophen/HYDROcodone 325-5 MG Tab PO PRN (22:31)
[2018-05-14] MEDS: metroNIDAZOLE/Normal Saline 500 MG in Premix Bag 1 BAG IV SCH (22:32)
[2018-05-14] MEDS: Saccharomyces Boulardii (Probiotic) 250 MG Cap PO SCH (22:37)
[2018-05-14] MEDS ORDERED: Promethazine 25 MG/ML SDV ONE (22:57)
[2018-05-14] MEDS: Promethazine 6.25 MG in Sodium Chloride 0.9% 50 ML IV SCH (23:42)
[2018-05-15] MEDS: HYDROmorphone 0.5 MG/0.5 ML SYRINGE IVPUSH PRN ×2 (00:40→05:10)
[2018-05-15] MEDS: metroNIDAZOLE/Normal Saline 500 MG in Premix Bag 1 BAG IV SCH ×3 (03:47→21:07)
[2018-05-15] MEDS: Sodium Chloride 0.9% 1,000 ML IV SCH ×3 (04:25→20:59)
[2018-05-15] MEDS: Acetaminophen/HYDROcodone 325-5 MG Tab PO PRN ×3 (04:32→18:33)
[2018-05-15] MEDS: Promethazine 6.25 MG in Sodium Chloride 0.9% 50 ML IV SCH ×3 (05:09→17:15)
[2018-05-15] MEDS: Ketorolac 15 MG/ML SDV IVPUSH PRN ×3 (08:10→21:15)
[2018-05-15] MEDS: Saccharomyces Boulardii (Probiotic) 250 MG Cap PO SCH ×2 (08:13→21:07)
[2018-05-15] MEDS: Famotidine 20 MG/2 ML SDV IVPUSH SCH ×2 (08:13→21:07)
[2018-05-15] MEDS: Cholestyramine/Aspartame Powder 4 GM Packet PO SCH (08:17)
[2018-05-15] MEDS: HYDROmorphone 0.5 MG/0.5 ML Syringe IVPUSH PRN ×4 (09:04→19:24)
[2018-05-15] MEDS ORDERED: Magnesium Sulfate/Water 2 GM in Premix Bag 1 BAG IV ONE (11:37)
[2018-05-15] MEDS ORDERED: Levofloxacin/Dextrose 5%-Water 500 MG in Premix Bag 1 BAG IV SCH (19:00)
[2018-05-15] MEDS ORDERED: Levofloxacin/Dextrose 5%-Water 750 MG in Premix Bag 1 BAG IV SCH (19:00)
--- NOTE | 2018-05-15 19:32 | PCM.PN ---
- General Info Date of Service: 05/15/18 Subjective Update: Somewhat tolerated clear liquids, developed abdominal pain with full liquids. Will resume clear liquids and add Levoquin to Flagyl. Functional Status: Reports: Ambulating, Urinating - Review of Systems General: Reports: No Symptoms HEENT: Reports: No Symptoms Pulmonary: Reports: No Symptoms Cardiovascular: Reports: No Symptoms Gastrointestinal: Reports: No Symptoms Genitourinary: Reports: No Symptoms Musculoskeletal: Reports: No Symptoms Skin: Reports: No Symptoms Neurological: Reports: No Symptoms Psychiatric: Reports: No Symptoms - Patient Data Vitals - Most Recent: Last Vital Signs Temp 36.5 C 05/15/18 16:14 Pulse 75 05/15/18 16:14 Resp 16 05/15/18 16:14 BP 114/57 L 05/15/18 16:14 Pulse Ox 97 05/15/18 16:14 Orthostatic Blood Pressure [ 102/71 Standing] Orthostatic Blood Pressure [ 109/73 Sitting] Orthostatic Blood Pressure [ 112/75 Supine] Weight - Most Recent: 57.561 kg I&O - Last 24 Hours: Intake & Output 05/15/18 05/15/18 05/15/18 06:59 14:59 22:59 Intake Total 1179 420 800 Balance 1179 420 800 Lab Results Last 24 Hours: Laboratory Results - last 24 hr 05/14/18 05/14/18 05/14/18 Range/Units 17:10 17:10 22:43 WBC (3.98-10.04) K/mm3 RBC (3.98-5.22) M/mm3 Hgb (11.2-15.7) gm/L Hct (34.1-44.9) % MCV (79.4-94.8) fl MCH (25.6-32.2) pg MCHC (32.2-35.5) g/dl RDW Std Deviation (36.4-46.3) fL Plt Count (182-369) K/mm3 MPV (9.4-12.3) fl Neut % (Auto) (34.0-71.1) % Lymph % (Auto) (19.3-51.7) % [place] % (Auto) (4.7-12.5) % Eos % (Auto) (0.7-5.8) Baso % (Auto) (0.1-1.2) % Neut # (Auto) (1.56-6.13) K/mm3 Lymph # (Auto) (1.18-3.74) K/mm3 [place] # (Auto) (0.24-0.36) K/mm3 Eos # (Auto) (0.04-0.36) K/mm3 Baso # (Auto) (0.01-0.08) K/mm3 ESR 14 (0-20) mm/hr Sodium (136-145) mEq/L Potassium (3.5-5.1) mEq/L Chloride (98-107) mEq/L Carbon Dioxide (21-32) mEq/L Anion Gap (5-15) BUN (7-18) mg/dL Creatinine (0.55-1.02) mg/dL Est Cr Clr Drug Dosing mL/min Estimated GFR (MDRD) (>60) mL/min BUN/Creatinine Ratio (14-18) Glucose (74-106) mg/dL Calcium (8.5-10.1) mg/dL Magnesium (1.8-2.4) mg/dl C-Reactive Protein 0.2 (<1.0) mg/dL Urine Color Trena H (Yellow) Urine Appearance Cloudy H (Clear) Urine pH 6.0 (5.0-8.0) Ur Specific [place] > or = 1.030 (1.005-1.030) Urine Protein Trace H (Negative) Urine Glucose (UA) Negative (Negative) Urine Ketones 2+ H (Negative) Urine Occult Blood Negative (Negative) Urine Nitrite Negative (Negative) Urine Bilirubin 1+ H (Negative) Urine Urobilinogen 0.2 (0.2-1.0) Ur Leukocyte Esterase Negative (Negative) Urine RBC 0-5 (0-5) /hpf Urine WBC 0-5 (0-5) /hpf Ur Epithelial Cells 0-5 (0-5) /hpf Urine Bacteria Few (FEW) /hpf Urine Mucus Many H (FEW) /hpf 05/15/18 05/15/18 Range/Units 06:05 06:05 WBC 7.83 (3.98-10.04) K/mm3 RBC 4.40 (3.98-5.22) M/mm3 Hgb 11.9 (11.2-15.7) gm/L Hct 36.1 (34.1-44.9) % MCV 82.0 (79.4-94.8) fl MCH 27.0 (25.6-32.2) pg MCHC 33.0 (32.2-35.5) g/dl RDW Std Deviation 39.3 (36.4-46.3) fL Plt Count 234 (182-369) K/mm3 MPV 9.5 (9.4-12.3) fl Neut % (Auto) 56.7 (34.0-71.1) % Lymph % (Auto) 34.5 (19.3-51.7) % [place] % (Auto) 6.4 (4.7-12.5) % Eos % (Auto) 1.8 (0.7-5.8) Baso % (Auto) 0.3 (0.1-1.2) % Neut # (Auto) 4.45 (1.56-6.13) K/mm3 Lymph # (Auto) 2.70 (1.18-3.74) K/mm3 [place] # (Auto) 0.50 H (0.24-0.36) K/mm3 Eos # (Auto) 0.14 (0.04-0.36) K/mm3 Baso # (Auto) 0.02 (0.01-0.08) K/mm3 ESR (0-20) mm/hr Sodium 142 (136-145) mEq/L Potassium 3.7 (3.5-5.1) mEq/L Chloride 111 H (98-107) mEq/L Carbon Dioxide 22 (21-32) mEq/L Anion Gap 12.7 (5-15) BUN 12 (7-18) mg/dL Creatinine 0.7 (0.55-1.02) mg/dL Est Cr Clr Drug Dosing 94.11 mL/min Estimated GFR (MDRD) > 60 (>60) mL/min BUN/Creatinine Ratio 17.1 (14-18) Glucose 88 (74-106) mg/dL Calcium 8.1 L (8.5-10.1) mg/dL Magnesium 1.9 (1.8-2.4) mg/dl C-Reactive Protein < 0.2 (<1.0) mg/dL Urine Color (Yellow) Urine Appearance (Clear) Urine pH (5.0-8.0) Ur Specific [place] (1.005-1.030) Urine Protein (Negative) Urine Glucose (UA) (Negative) Urine Ketones (Negative) Urine Occult Blood (Negative) Urine Nitrite (Negative) Urine Bilirubin (Negative) Urine Urobilinogen (0.2-1.0) Ur Leukocyte Esterase (Negative) Urine RBC (0-5) /hpf Urine WBC (0-5) /hpf Ur Epithelial Cells (0-5) /hpf Urine Bacteria (FEW) /hpf Urine Mucus (FEW) /hpf Geraldo Results Last 24 Hours: Microbiology 05/14/18 17:04 - Final Stool / Feces NEGATIVE FOR SHIGA TOXIN 1 - Final NEGATIVE FOR SHIGA TOXIN 2 05/14/18 17:04 Stool for WBCs - Final Stool / Feces NO WBC SEEN Rotavirus Antigen - Final NEGATIVE ROTAVIRUS ANTIGEN Med Orders - Current: Current Medications Acetaminophen (Tylenol) 650 mg PO Q4H PRN PRN Reason: Pain (Mild 1-3)/fever Hydrocodone Bitart/Acetaminophen ([place] 325-5 Mg) 1 tab PO Q4H PRN PRN Reason: Pain (moderate 4-6) Last Admin: 05/15/18 18:33 Dose: 1 tab Cholestyramine Resin (Prevalite Packet) 4 gm PO DAILY [facility] Last Admin: 05/15/18 08:17 Dose: 4 gm Dicyclomine HCl (Bentyl) 20 mg PO Q6H PRN PRN Reason: Cramping Last Admin: 05/15/18 15:22 Dose: 20 mg Famotidine (Pepcid) 20 mg IVPUSH BID [facility] Last Admin: 05/15/18 08:13 Dose: 20 mg Hydromorphone HCl (Dilaudid) 0.5 mg IVPUSH Q4H PRN PRN Reason: Pain Last Admin: 05/15/18 19:24 Dose: 0.5 mg Metronidazole 500 mg/ Premix 100 mls @ 100 mls/hr IV Q8H [facility] Stop: 05/15/18 20:31 Last Admin: 05/15/18 12:06 Dose: 100 mls/hr Sodium Chloride (Normal Saline) 1,000 mls @ 125 mls/hr IV ASDIRECTED [facility] Last Admin: 05/15/18 12:06 Dose: 125 mls/hr Promethazine HCl 6.25 mg/ (Sodium Chloride) 50.25 mls @ 100 mls/hr IV Q6H [facility] Last Admin: 05/15/18 17:15 Dose: 100 mls/hr Levofloxacin/Dextrose 500 mg/ (Premix) 100 mls @ 100 mls/hr IV Q24H [facility] Ketorolac Tromethamine (Toradol) 15 mg IVPUSH Q6H PRN PRN Reason: Pain Last Admin: 05/15/18 14:35 Dose: 15 mg Metronidazole (Flagyl) 500 mg PO TID [facility] Ondansetron HCl (Zofran) 4 mg IVPUSH Q8H PRN PRN Reason: Nausea/Vomiting Last Admin: 05/14/18 19:53 Dose: 4 mg Ondansetron HCl (Zofran Odt) 4 mg PO Q4H PRN PRN Reason: nausea, able to take PO Saccharomyces Boulardii (Florastor) 250 mg PO BID [facility] Last Admin: 05/15/18 08:13 Dose: 250 mg Temazepam (Restoril) 7.5 mg PO BEDTIME PRN PRN Reason: Sleep Discontinued Medications Hydromorphone HCl (Dilaudid) 0.5 mg IVPUSH ONETIME STA Stop: 05/14/18 17:02 Last Admin: 05/14/18 17:23 Dose: 0.5 mg Hydromorphone HCl (Dilaudid) 0.5 mg IVPUSH Q4HR PRN PRN Reason: Pain Last Admin: 05/15/18 05:10 Dose: 0.5 mg Sodium Chloride (Normal Saline) 1,000 mls @ 999 mls/hr IV ONETIME ONE Stop: 05/14/18 17:56 Last Admin: 05/14/18 17:20 Dose: 999 mls/hr Promethazine HCl 6.25 mg/ (Sodium Chloride) 50.25 mls @ 100 mls/hr IV Q6H [facility] Last Admin: 05/14/18 23:50 Dose: Not Given Magnesium Sulfate 2 gm/ Premix 50 mls @ 25 mls/hr IV ONETIME ONE Stop: 05/15/18 13:36 Last Admin: 05/15/18 13:32 Dose: 25 mls/hr Ondansetron HCl (Zofran) 4 mg IVPUSH ONETIME ONE Stop: 05/14/18 16:57 Last Admin: 08/17/18 17:21 Dose: 4 mg Promethazine HCl (Phenergan) Confirm Administered Dose 25 mg .ROUTE .STK-MED ONE Stop: 05/14/18 22:58 Last Admin: 05/14/18 23:49 Dose: Not Given - Exam Quality Assessment: DVT Prophylaxis General: Alert, Oriented, Cooperative, Mild Distress HEENT: Pupils Equal, Pupils Reactive, EOMI Neck: Trachea Midline, No JVD Lungs: Normal Respiratory Effort, Decreased Breath Sounds Cardiovascular: Regular Rate, Regular Rhythm GI/Abdominal Exam: Normal Bowel Sounds, Soft, Non-Tender, No Organomegaly, Guarding (Female) Exam: Deferred Back Exam: Normal Inspection Extremities: Normal Inspection, Non-Tender, Normal Capillary Refill Skin: Warm Neurological: No New Focal Deficit, Normal Gait, Normal Speech Psy/Mental Status: Normal Affect, Normal Mood, Depressed - Problem List Review Problem List Initiated/Reviewed/Updated: Yes - My Orders Last 24 Hours: My Active Orders 05/14/18 19:45 Ondansetron [Zofran] 4 mg IVPUSH Q8H PRN 05/14/18 22:46 K Pad [Heat Therapy] [OM.PC] Routine 05/15/18 00:57 Patient Status [ADT] Routine 05/15/18 19:30 Levofloxacin/Dextrose 5%-Water [Levaquin in D5W 500 MG/100 ML] 500 mg Premix Bag 1 bag IV Q24H 05/16/18 Breakfast Clear Liquid Diet [DIET] - Plan Plan:: I/P: Acute: Colitis, failed outpt therapy * Lower abdominal pain x 4 days, nausea, watery diarrhea * Was diagnosed with this yesterday in the ED * Was sent home with [place], Flagyl and Zofran --> severe increased pain with drinking * No recent change in eating habits, sick exposure, or h/o cdiff (abx started yesterday) * Electrolytes WNL * ESR normal at 14 * Infectious workup: * No F/C, WBC 10.22, CRP 0.2 * Stool Cultures--> no WBCs * Cdiff--> negative * Rotavirus --> negative * Lipase--> 276 * Norovirus--> pending * U/A--> pending * CT ab/pelvis 05/13/18: mild thickening of the colon, consistent with mild or early colitis * Continue Flagyl IV 24H, then switch to PO if tolerated * Florastor and Questran PRN diarrhea * Pain medications PRN * Previously had Colonoscopy with no findings per pt * Recommend F/U with GI specialist Nausea * 2/2 above * Antiemetics PRN * NPO except medications and ice chips * IVF started in ED--> continue Chronic: Chronic abdominal pain (started 2010) PCOS s/p oophorectomy (08/11/17) h/o Prolapsed Uterus stage 3 s/p hysterectomy (2015) h/o Cholecystectomy Family History: Rheumatoid Arthritis (Paternal) Colon [place] (Maternal Great Grandmother and Grandmother) Plan: Continue Flagyl, add Levoquin Home meds as ordered Correct electrolyte abnormalities PRN Routine AM labs Other orders as above DVT Prophylaxis: LORENZO arguello GI Prophylaxis: Pepcid Code Status: Full Code; PCP: Mariza De Jesus
[2018-05-16] MEDS: Promethazine 6.25 MG in Sodium Chloride 0.9% 50 ML IV SCH ×3 (00:49→12:19)
[2018-05-16] MEDS: Acetaminophen/HYDROcodone 325-5 MG Tab PO PRN ×3 (02:07→10:22)
[2018-05-16] MEDS: HYDROmorphone 0.5 MG/0.5 ML Syringe IVPUSH PRN ×3 (02:20→10:21)
[2018-05-16] MEDS: Sodium Chloride 0.9% 1,000 ML IV SCH (05:36)
[2018-05-16] MEDS: Saccharomyces Boulardii (Probiotic) 250 MG Cap PO SCH (08:36)
[2018-05-16] MEDS: Cholestyramine/Aspartame Powder 4 GM Packet PO SCH (08:36)
[2018-05-16] MEDS: Famotidine 20 MG/2 ML SDV IVPUSH SCH (08:36)
[2018-05-16] MEDS ORDERED: metroNIDAZOLE 500 MG Tab PO SCH (09:00)
[2018-05-16 09:20] VITALS: BP 113/84
[2018-05-16] MEDS ORDERED: traMADol 50 MG Tab PO PRN (10:49)
--- NOTE | 2018-05-16 13:23 | PCM.DCSUM1 ---
Discharge Summary - Hospital Course Free Text/Narrative:: 27 year old female with chronic abdominal pain began to attempt to control her pain management by requesting narcotics exactly at the time due. Also controlled dietary intake, requesting clear liquids but drinking coffee. However she stated that the clear liquids precipitated abdominal pain. She was requesting that Dilaudid and [place] be given together, and stated that she did not want Toradol. Narcotics were stopped, and she was continued on Tramadol, and Toradol. She subsequently requested a regular diet which she ate without difficulty. Once she finished her tray, she stated that she was okay to be discharged. She was DCd on her home meds. Follow up with Dina De Jesus is anticipated. HPI Initial Comments: HPI: This is a 27 yo female with past medical hx/o chronic abdominal pain (started 2010), PCOS s/p oophorectomy (08/11/17), h/o Prolapsed Uterus stage 3 s/p hysterectomy (2015), h/o Cholecystectomy, who comes in for lower abdominal pain. She came in to the ED for similar symptoms yesterday and was diagnosed with mild colitis via CT scan. She was sent home with [place], Flagyl and Zofran but is having severe abdominal pain when she tries to drink. She is also having nausea and frequent watery diarrhea. No F/C, no genitourinary symptoms. Per pt she has had a colonoscopy in the past and it was unremarkable. Her symptoms slightly improved after receiving Zofran, Dilaudid and IVF in the ED. Her initial workup in the ED showed a CBC remarkable for WBC slightly elevated at 10.22, RBC 5.36, MPV 9.2, Bands 1%, Eosinophils 0%. Her chemistry is unremarkable. Lipase normal at 276. She is subsequently admitted to the medical floor. She is a Full Code. His PCP is Mariza De Jesus. Abdomen Diagnosis: Stroke: No - Discharge Data Discharge Date: 05/16/18 Discharge Disposition: Home, Self-Care 01 Condition: Good - Discharge Diagnosis/Problem(s) (1) Abdominal pain of unknown etiology SNOMED Code(s): 836484582 ICD Code: R10.9 - UNSPECIFIED ABDOMINAL PAIN Status: Acute (2) Abdominal pain, chronic, generalized SNOMED Code(s): 108252439 ICD Code: R10.84 - GENERALIZED ABDOMINAL PAIN; G89.29 - OTHER CHRONIC PAIN Status: Acute - Patient Summary/Data Consults: Consultations 05/14/18 20:31 Consult to [employer] [CONS] Routine - Patient Instructions Diet: Usual Diet as Tolerated Activity: As Tolerated Driving: May Drive Today Showering/Bathing: May Shower Notify Provider of: Fever, Increased Pain, Nausea and/or Vomiting - Discharge Plan *PRESCRIPTION DRUG MONITORING PROGRAM REVIEWED*: Not Applicable *COPY OF PRESCRIPTION DRUG MONITORING REPORT IN PATIENT ANTWAN: Not Applicable Home Medications: Home Meds Dicyclomine [Bentyl] 20 mg PO Q6H PRN #20 tablet 01/07/18 [Rx] Acetaminophen/HYDROcodone [[place] 325-5 MG] 1 tab PO Q6H PRN #15 tablet 05/13/18 [Rx] Ondansetron [Zofran ODT] 1 tab PO Q8H PRN #15 tab.dis 05/13/18 [Rx] metroNIDAZOLE [Flagyl] 500 mg PO Q8H #30 tab 05/13/18 [Rx] Patient Handouts: Food Choices to Help Relieve Diarrhea, Adult, Abdominal Pain , Adult, [id number] Forms: ED Department Discharge Referrals: Mariza De Jesus NP [Primary Care Provider] - (Please call and schedule a follow up apt. with your primary care in 7-10 days. ) - Discharge Summary/Plan Comment DC Time >30 min.: No Discharge Summary/Plan Comment: I/P: Acute: Colitis, failed outpt therapy * Lower abdominal pain x 4 days, nausea, watery diarrhea * Was diagnosed with this yesterday in the ED * Was sent home with [place], Flagyl and Zofran --> severe increased pain with drinking * No recent change in eating habits, sick exposure, or h/o cdiff (abx started yesterday) * Electrolytes WNL * ESR normal at 14 * Infectious workup: * No F/C, WBC 10.22, CRP 0.2 * Stool Cultures--> no WBCs * Cdiff--> negative * Rotavirus --> negative * Lipase--> 276 * Norovirus--> pending * U/A--> pending * CT ab/pelvis 05/13/18: mild thickening of the colon, consistent with mild or early colitis * Continue Flagyl IV 24H, then switch to PO if tolerated * Florastor and Questran PRN diarrhea * Pain medications PRN * Previously had Colonoscopy with no findings per pt * Recommend F/U with GI specialist Nausea * 2/2 above * Antiemetics PRN * NPO except medications and ice chips * IVF started in ED--> continue Chronic: Chronic abdominal pain (started 2010) PCOS s/p oophorectomy (08/11/17) h/o Prolapsed Uterus stage 3 s/p hysterectomy (2015) h/o Cholecystectomy Family History: Rheumatoid Arthritis (Paternal) Colon [place] (Maternal Great Grandmother and Grandmother) Plan: Continue Flagyl--previous ED prescriptions Home meds previously written - General Info Date of Service: 05/14/18 Functional Status: Reports: Tolerating Diet - Review of Systems General: Reports: No Symptoms HEENT: Reports: No Symptoms Pulmonary: Reports: No Symptoms Cardiovascular: Reports: No Symptoms Gastrointestinal: Reports: No Symptoms Genitourinary: Reports: No Symptoms Musculoskeletal: Reports: No Symptoms Skin: Reports: No Symptoms Neurological: Reports: No Symptoms Psychiatric: Reports: No Symptoms - Patient Data Vitals - Most Recent: Last Vital Signs Temp 36.6 C 05/16/18 08:43 Pulse 52 L 05/16/18 08:43 Resp 16 05/16/18 08:43 BP 113/84 05/16/18 08:43 Pulse Ox 98 05/16/18 08:43 Orthostatic Blood Pressure [ 102/71 Standing] Orthostatic Blood Pressure [ 109/73 Sitting] Orthostatic Blood Pressure [ 112/75 Supine] Weight - Most Recent: 58.559 kg I&O - Last 24 hours: Intake & Output 05/15/18 05/16/18 05/16/18 22:59 06:59 14:59 Intake Total 800 1780 300 Balance 800 1780 300 Lab Results - Last 24 hrs: Laboratory Results - last 24 hr 05/16/18 05/16/18 Range/Units 05:55 05:55 WBC 7.50 (3.98-10.04) K/mm3 RBC 4.79 (3.98-5.22) M/mm3 Hgb 13.1 (11.2-15.7) gm/L Hct 38.6 (34.1-44.9) % MCV 80.6 (79.4-94.8) fl MCH 27.3 (25.6-32.2) pg MCHC 33.9 (32.2-35.5) g/dl RDW Std Deviation 38.8 (36.4-46.3) fL Plt Count 250 (182-369) K/mm3 MPV 9.5 (9.4-12.3) fl Neut % (Auto) 53.9 (34.0-71.1) % Lymph % (Auto) 36.7 (19.3-51.7) % [place] % (Auto) 6.9 (4.7-12.5) % Eos % (Auto) 2.1 (0.7-5.8) Baso % (Auto) 0.3 (0.1-1.2) % Neut # (Auto) 4.04 (1.56-6.13) K/mm3 Lymph # (Auto) 2.75 (1.18-3.74) K/mm3 [place] # (Auto) 0.52 H (0.24-0.36) K/mm3 Eos # (Auto) 0.16 (0.04-0.36) K/mm3 Baso # (Auto) 0.02 (0.01-0.08) K/mm3 Sodium 143 (136-145) mEq/L Potassium 3.6 (3.5-5.1) mEq/L Chloride 110 H (98-107) mEq/L Carbon Dioxide 24 (21-32) mEq/L Anion Gap 12.6 (5-15) BUN 7 (7-18) mg/dL Creatinine 0.7 (0.55-1.02) mg/dL Est Cr Clr Drug Dosing 94.11 mL/min Estimated GFR (MDRD) > 60 (>60) mL/min BUN/Creatinine Ratio 10.0 L (14-18) Glucose 99 (74-106) mg/dL Calcium 8.5 (8.5-10.1) mg/dL Magnesium 2.2 (1.8-2.4) mg/dl C-Reactive Protein 0.2 (<1.0) mg/dL GUSTAVO Results - Last 24 hrs: Microbiology 05/14/18 17:04 - Final Stool / Feces NEGATIVE FOR SHIGA TOXIN 1 - Final NEGATIVE FOR SHIGA TOXIN 2 Med Orders - Current: Current Medications Acetaminophen (Tylenol) 650 mg PO Q4H PRN PRN Reason: Pain (Mild 1-3)/fever Hydrocodone Bitart/Acetaminophen ([place] 325-5 Mg) 1 tab PO Q4H PRN PRN Reason: Pain (moderate 4-6) Last Admin: 05/16/18 10:22 Dose: 1 tab Cholestyramine Resin (Prevalite Packet) 4 gm PO DAILY [facility] Last Admin: 05/16/18 08:36 Dose: 4 gm Dicyclomine HCl (Bentyl) 20 mg PO Q6H PRN PRN Reason: Cramping Last Admin: 05/15/18 15:22 Dose: 20 mg Famotidine (Pepcid) 20 mg IVPUSH BID [facility] Last Admin: 05/16/18 08:36 Dose: 20 mg Sodium Chloride (Normal Saline) 1,000 mls @ 125 mls/hr IV ASDIRECTED [facility] Last Admin: 05/16/18 05:36 Dose: 125 mls/hr Levofloxacin/Dextrose 750 mg/ (Premix) 150 mls @ 100 mls/hr IV Q24H [facility] Last Admin: 05/15/18 20:59 Dose: 100 mls/hr Ketorolac Tromethamine (Toradol) 15 mg IVPUSH Q6H PRN PRN Reason: Pain Last Admin: 05/15/18 21:15 Dose: 15 mg Metronidazole (Flagyl) 500 mg PO TID [facility] Last Admin: 05/16/18 08:36 Dose: 500 mg Ondansetron HCl (Zofran) 4 mg IVPUSH Q8H PRN PRN Reason: Nausea/Vomiting Last Admin: 05/14/18 19:53 Dose: 4 mg Ondansetron HCl (Zofran Odt) 4 mg PO Q4H PRN PRN Reason: nausea, able to take PO Saccharomyces Boulardii (Florastor) 250 mg PO BID [facility] Last Admin: 05/16/18 08:36 Dose: 250 mg Temazepam (Restoril) 7.5 mg PO BEDTIME PRN PRN Reason: Sleep Last Admin: 05/15/18 21:16 Dose: 7.5 mg Tramadol HCl (Ultram) 50 mg PO Q6H PRN PRN Reason: Pain (moderate 4-6) Discontinued Medications Hydromorphone HCl (Dilaudid) 0.5 mg IVPUSH ONETIME STA Stop: 05/14/18 17:02 Last Admin: 05/14/18 17:23 Dose: 0.5 mg Hydromorphone HCl (Dilaudid) 0.5 mg IVPUSH Q4HR PRN PRN Reason: Pain Last Admin: 05/15/18 05:10 Dose: 0.5 mg Hydromorphone HCl (Dilaudid) 0.5 mg IVPUSH Q4H PRN PRN Reason: Pain Last Admin: 05/16/18 10:21 Dose: 0.5 mg Sodium Chloride (Normal Saline) 1,000 mls @ 999 mls/hr IV ONETIME ONE Stop: 05/14/18 17:56 Last Admin: 05/14/18 17:20 Dose: 999 mls/hr Metronidazole 500 mg/ Premix 100 mls @ 100 mls/hr IV Q8H [facility] Stop: 05/15/18 20:31 Last Admin: 05/15/18 21:07 Dose: 100 mls/hr Promethazine HCl 6.25 mg/ (Sodium Chloride) 50.25 mls @ 100 mls/hr IV Q6H [facility] Last Admin: 05/14/18 23:50 Dose: Not Given Promethazine HCl 6.25 mg/ (Sodium Chloride) 50.25 mls @ 100 mls/hr IV Q6H [facility] Last Admin: 05/16/18 12:19 Dose: Not Given Magnesium Sulfate 2 gm/ Premix 50 mls @ 25 mls/hr IV ONETIME ONE Stop: 05/15/18 13:36 Last Admin: 05/15/18 13:32 Dose: 25 mls/hr Levofloxacin/Dextrose 500 mg/ (Premix) 100 mls @ 100 mls/hr IV Q24H [facility] Last Admin: 05/15/18 22:55 Dose: Not Given Ondansetron HCl (Zofran) 4 mg IVPUSH ONETIME ONE Stop: 05/14/18 16:57 Last Admin: 05/14/18 17:21 Dose: 4 mg Promethazine HCl (Phenergan) Confirm Administered Dose 25 mg .ROUTE .STK-MED ONE Stop: 05/14/18 22:58 Last Admin: 05/14/18 23:49 Dose: Not Given - Exam Quality Assessment: Reports: DVT Prophylaxis General: Reports: Alert, Oriented, No Acute Distress HEENT: Reports: Pupils Equal, Pupils Reactive, EOMI Neck: Reports: Trachea Midline, No JVD Lungs: Reports: Clear to Auscultation, Normal Respiratory Effort Cardiovascular: Reports: Regular Rate, Regular Rhythm GI/Abdominal Exam: Normal Bowel Sounds, Soft, Non-Tender, No Organomegaly, No Distention (Female) Exam: Deferred Rectal (Female) Exam: Deferred Back Exam: Reports: Normal Inspection, Full Range of Motion Extremities: Normal Inspection, Normal Range of Motion, Non-Tender, No Pedal Edema, Normal Capillary Refill Skin: Reports: Warm Neurological: Reports: No New Focal Deficit, Normal Gait, Normal Speech Psy/Mental Status: Reports: Alert, Anxious
== END 2018-05-16 14:05 | disposition home or self-care (01) | DRG 249 ==
LOC: JD.ED 14:52 → JD.MS 19:07
PROVIDERS: ADMIT Internal Medicine Cardiovascular Disease; ATTEND Internal Medicine Cardiovascular Disease
DX: K52.9 Noninfective gastroenteritis and colitis, unspecified (principal); G89.29 Other chronic pain; R10.84 Generalized abdominal pain; H54.7 Unspecified visual loss; G43.909 Migraine, unspecified, not intractable, without status migrainosus; L68.0 Hirsutism; Z90.710 Acquired absence of both cervix and uterus; Z87.440 Personal history of urinary (tract) infections; Z90.49 Acquired absence of other specified parts of digestive tract; Z79.899 Other long term (current) drug therapy; Z88.0 Allergy status to penicillin
CPT/HCPCS: 36415; 80048; 80053; 81001; 83690; 83735; 85007; 85025; 85027; 85652; 86140; 87046; 87086; 87425; 87427; 87493; 87798; 89055; 96361; 96374; 96375; 99285-25; A9270-GY; J1170; J1885; J1956; J2405; J2550; J3475; J3490; J7040; J7050

== ENCOUNTER 2022-05-07 12:03 | Emergency (ER) | payer BC, MEDICAID ==
[2022-05-07 12:15] VITALS: BP 94/66; PULSE 100
[2022-05-07] MEDS ORDERED: Lidocaine 1% 10 ML MDV INJECT ONE (12:21)
[2022-05-07] MEDS ORDERED: Doxycycline Monohydrate 100 MG Cap PO ONE (12:45)
== END 2022-05-07 13:07 | disposition home or self-care (01) ==
LOC: JD.ED 12:03
DX: L02.416 Cutaneous abscess of left lower limb (principal); Z88.0 Allergy status to penicillin
CPT/HCPCS: 10060; 87070; 87075; 87077; 87186; 87205; 99283; A9270

== ENCOUNTER 2023-07-02 20:00 | Emergency (ER) | payer MEDICAID ==
[2023-07-02] MEDS ORDERED: Naloxone 0.4 MG/ML SDV IVPUSH PRN (20:27)
[2023-07-02] MEDS ORDERED: Morphine 4 MG/ML Syringe IM ONE (20:27)
[2023-07-02] MEDS ORDERED: Ketorolac 60 MG/2 ML SDV IM ONE (20:27)
[2023-07-02] MEDS ORDERED: Acetaminophen/oxyCODONE 325-5 MG Tab PO ONE (21:25)
[2023-07-03 01:36] VITALS: BP 89/60; PULSE 98
== END 2023-07-02 22:25 | disposition home or self-care (01) ==
LOC: JD.ED 20:00
DX: S82.61XA Displaced fracture of lateral malleolus of right fibula, initial encounter for closed fracture (principal); Z88.0 Allergy status to penicillin; Z79.899 Other long term (current) drug therapy; Z90.49 Acquired absence of other specified parts of digestive tract; Z90.710 Acquired absence of both cervix and uterus; W01.0XXA Fall on same level from slipping, tripping and stumbling without subsequent striking against object, initial encounter
CPT/HCPCS: 29515; 73610; 96372; 99283; A9270; J1885; 99284

== ENCOUNTER 2023-07-07 10:52 | Emergency (ER) | payer MEDICAID ==
[2023-07-07 12:03] VITALS: BP 114/75; PULSE 89
== END 2023-07-07 11:54 | disposition home or self-care (01) ==
LOC: JD.ED 10:52
DX: S82.831A Other fracture of upper and lower end of right fibula, initial encounter for closed fracture (principal); Z88.0 Allergy status to penicillin; X58.XXXA Exposure to other specified factors, initial encounter
CPT/HCPCS: 99282; 99283